=== PATIENT | male | born 1955 | race Caucasian/White ===

== ENCOUNTER 2018-05-14 13:16 | Inpatient (IN) ==
--- NOTE | 2018-05-14 13:48 | XR ---
EXAM DATE: 05/14/2018 1:39 PM EDT AGE/SEX: 63 years / Male INDICATIONS: . Chest and left arm pain. CLINICAL DATA: This is the patient's initial encounter. Patient reports that signs and symptoms have been present for 2 weeks and indicates a pain score of 5/10. MEDICAL/SURGICAL HISTORY: Hypertension. Coronary artery stent. COMPARISON: No prior exams available for comparison. FINDINGS: PA and lateral views of the chest demonstrate the lungs to be symmetrically aerated without evidence of mass, infiltrate or effusion. The cardiomediastinal contours are unremarkable. Osseous structures are intact. CONCLUSION: No acute cardiopulmonary process. Electronically signed by: Yousuf Quezada MD 05/14/2018 1:46 PM EDT
--- NOTE | 2018-05-14 14:03 | ED ---
HPI General Chief complaint: Chest Pain Stated complaint: Chest Pain/Stents Time Seen by Provider: 05/14/18 13:29 Source: patient and RN notes reviewed Mode of arrival: ambulatory History of Present Illness HPI narrative: 63yM presenting with chest pain. The patient states that 3 weeks ago he was mowing his lawn when he began to have sudden-onset substernal chest "pressure" which radiated to his left arm, was constant x 15 minutes and resolved on its own, severe, and associated with diaphoresis, dyspnea, and nausea. Since then, he has had multiple recurrent episodes which now occur both on exertion and at rest. He had 1 episode of chest pain associated with vomiting. Denies fever or chills, syncope, cough, diarrhea, or dysuria. He has a history of CAD s/p multiple stents (most recent approximately 7 years ago). Related Data Home Medications Medication Instructions Recorded Confirmed aspirin 81 mg PO DAILY 05/14/18 05/14/18 clopidogrel [Plavix] 75 mg PO DAILY 05/14/18 05/14/18 losartan 25 mg PO DAILY 05/14/18 05/14/18 simvastatin 10 mg PO QPM 05/14/18 05/14/18 Allergies Allergy/AdvReac Type Severity Reaction Status Date / Time No Known Allergies Allergy Unverified 05/14/18 13:22 Review of Systems Except as stated in HPI: all other systems reviewed are negative Constitutional Reports excessive sweating Eyes Denies blurry vision ENT Denies nasal congestion Cardiovascular Reports chest pain Respiratory Denies cough Gastrointestinal Reports nausea Genitourinary Denies dysuria Musculoskeletal Denies back pain Neurologic Denies confusion Psychiatric Denies confusion PMFSH History History Provided By: Patient Medical History Medical History Elevated cholesterol (Acute) Hypertension (Acute) Surgical History Surgical History H/O heart artery stent (Acute) H/O umbilical hernia repair (Acute) Social History Social History Substance History: No History of Abuse Second Hand Smoke Exposure: No Smoking Status: Current every day smoker Tobacco Type: Cigarettes How Often Do You Have a Drink Containing Alcohol: Never Recent Travel in [facility] within the Last 8 Weeks: No Recent Out of Country Travel within the Last 8 Weeks: No Immunization History Tetanus Immunization: >5 Years Hx Influenza Vaccine This Season: No Exam Const General: healthy appearing and no acute distress [facility] Head: normocephalic and atraumatic Face and sinus: normal facial exam Eyes General: appearance normal, both eyes and all related structures Pupils: PERRL Chest Chest: normal inspection of the chest Resp Effort & Inspection: normal respiratory effort Auscultation: no rhonchi and no wheezes Cardio Rate: bradycardic Rhythm: regular rhythm GI Inspection: non-distended Palpation: soft and nontender Skin General: no rashes or lesions noted Other: Non-diaphoretic Neuro General: alert, awake, oriented x3 and no focal motor deficits Psych Affect: normal affect Course Initial Documented Vital Signs Temperature 97.5 F L 05/14/18 13:18 Pulse Rate 52 L 05/14/18 13:18 Respiratory Rate 16 05/14/18 13:18 Blood Pressure 171/82 H 05/14/18 13:18 Pulse Oximetry 99 05/14/18 13:18 Last Documented Vital Signs Temperature 97.5 F L 05/14/18 13:18 Pulse Rate 57 L 05/14/18 14:23 Respiratory Rate 16 05/14/18 14:23 Blood Pressure 130/76 05/14/18 14:23 Pulse Oximetry 98 05/14/18 14:23 Clinical Decision Support HEART Score Questions History: Highly suspicious EKG: Non-specific repolarization disturbance Age: 45-64 years Risk Factors: 3 or more Risk Factors or Hx of Atherosclerotic Disease Initial Troponin: Normal Limit Heart Score HEART Score: 6 Wells' Criteria Questions Clinical Signs and Symptoms of DVT: No PE is primary diagnosis or equally likely: No Heart Rate greater than 100: No Immobilized at least 3 days or Surgery in previous 4 weeks: No Previous, objectively diagnosed PE or DVT: No Hemoptysis: No Malignancy with treatment within 6 months or palliative: No Wells' Criteria Score Wells' Criteria Score: 0 Medical Decision Making MDM Narrative Medical decision making narrative: Assessment: 63yM presenting with chest pain Plan: EKG and monitor CXR Labs ASA Patient is high-risk via HEART score and will need to stay for observation, serial enzyme measurements, and cardiac monitoring. Patient understands and agrees. Case discussed with Dr. Hart of [facility], who agrees with observation. Patient is ruled out via age-adjusted D- dimer cutoff (age x 10). Differential Diagnosis Differential Diagnosis: Differential diagnosis includes, but is not limited to: ACS, pneumonia, pericarditis Low-risk Well's Lab Data Lab results reviewed: Yes I reviewed the patient's lab results. Result diagrams: 05/14/18 13:50 05/14/18 13:50 Lab Results 05/14/18 05/14/18 05/14/18 Range/Units 13:50 13:50 13:50 CBC w Diff Auto diff final WBC 9.3 (4.0-11.0) th/mm3 RBC 5.18 (4.50-5.90) mil/mm3 Hgb 15.0 (13.0-17.0) gm/dL Hct 44.9 (39.0-51.0) % MCV 86.7 (80.0-100.0) fL MCH 29.0 (27.0-34.0) pg MCHC 33.4 (32.0-36.0) % RDW 12.6 (11.6-17.2) % Plt Count 156 (150-450) th/mm3 MPV 8.1 (7.0-11.0) fL Neut % (Auto) 73.9 H (16.0-70.0) % Lymph % (Auto) 17.3 (9.0-44.0) % [place] % (Auto) 6.6 (0.0-8.0) % Eos % (Auto) 1.8 (0.0-4.0) % Baso % (Auto) 0.4 (0.0-2.0) % Neut # (Auto) 6.9 (1.8-7.7) th/mm3 Lymph # (Auto) 1.6 (1.0-4.8) th/mm3 [place] # (Auto) 0.6 (0.0-0.9) th/mm3 Eos # (Auto) 0.2 (0.0-0.4) th/mm3 Baso # (Auto) 0.0 (0.0-0.2) th/mm3 WBC Differential . Differential Comment . D-Dimer Quant (PE/DVT) 0.56 H (0.00-0.50) mg/L FEU Sodium 139 (136-145) meq/L Potassium 4.0 (3.5-5.1) meq/L Chloride 106 (98-107) meq/L Carbon Dioxide 26.6 (21.0-32.0) meq/L Anion Gap 6 (5-15) meq/L BUN 17 (7-18) mg/dL Creatinine 0.93 (0.60-1.30) mg/dL Estimated GFR 83 L (>89) mL/min Random Glucose 104 (74-106) mg/dL Calcium 8.0 L (8.5-10.1) mg/dL Total Creatine Kinase 64 (39-308) U/L Troponin I 0.02 (0.02-0.05) ng/mL Imaging Data Radiologist's impression: Chest X-Ray 05/14/18 13:24 CONCLUSION: No acute cardiopulmonary process. ECG Data Attestation: I personally reviewed and interpreted this ECG as follows: Interpretation: Rate: 50 BPM Rhythm: Sinus Fisher: Normal Intervals: Normal intervals, no blocks, QTc 402 ms Q waves: None T waves: Inverted in III, aVF ST segments: No elevations or depressions Impression: Sinus bradycardia, no previous EKG available for comparison Discharge Plan Discharge Disposition Patient Disposition: 30 Still Patient Discharge Condition Condition: Stable Discharge Details Diagnosis: Unstable angina Physicians Team ED Provider: Dasia Alaniz Primary Care Provider: Primary Care Dennisi,Linda Rxs /Orders / Referrals /Forms Prescriptions: No Action simvastatin 10 mg Tablet 10 mg PO QPM RF: 0 clopidogrel [Plavix] 75 mg Tablet 75 mg PO DAILY RF: 0 losartan 25 mg Tablet 25 mg PO DAILY RF: 0 aspirin 81 mg Tablet,Chewable 81 mg PO DAILY RF: 0 Discharge Instructions Patient Printed Instructions: Chest Pain (ED) Discharge Interventions Interventions: Vital Signs Last Done: 05/14/18 14:23 Status ED Status: With Doctor
[2018-05-14 14:06] LABS: Baso % (Auto) 0.4 % (0.0-2.0); Eos # (Auto) 0.2 th/mm3 (0.0-0.4); Eos % (Auto) 1.8 % (0.0-4.0); Hematocrit 44.9 % (39.0-51.0); Lymph # (Auto) 1.6 th/mm3 (1.0-4.8); Lymph % (Auto) 17.3 % (9.0-44.0); Mean Corpuscular HGB Conc 33.4 % (32.0-36.0); Mean Corpuscular Volume 86.7 fL (80.0-100.0); Mean Platelet Volume 8.1 fL (7.0-11.0); Mono # (Auto) 0.6 th/mm3 (0.0-0.9); Mono % (Auto) 6.6 % (0.0-8.0); Neut # (Auto) 6.9 th/mm3 (1.8-7.7); Neut % (Auto) 73.9 % (16.0-70.0); Platelet Count 156 th/mm3 (150-450); Red Blood Count 5.18 mil/mm3 (4.50-5.90); Red Cell Distribution Width 12.6 % (11.6-17.2); White Blood Count 9.3 th/mm3 (4.0-11.0)
[2018-05-14 14:15] LABS: Carbon Dioxide 26.6 meq/L (21.0-32.0)
[2018-05-14 14:22] LABS: Troponin I 0.02 ng/mL (0.02-0.05)
[2018-05-14 16:29] LABS: Troponin I 0.13 ng/mL (0.02-0.05)
[2018-05-14] MEDS ORDERED: Heparin Drip 25,000 UNIT/250 ML BAG IV.CONT PRN (17:26)
--- NOTE | 2018-05-14 17:29 | P.HP ---
History of Present Illness Primary Care Physician: No Primary Care Physician Chief Complaint: Chest pain History of Present Illness: 63-year-old male with known history of hypertension, hyperlipidemia, coronary disease who presented to the hospital for evaluation chest pain. Patient is followed by Dr. Catherine on a regular basis. Patient states that he saw him last in August 2017. Since then he has been doing quite well until probably about a week ago when he started developing pain on exertion. Patient states that he was mowing the lawn in the heat and started developing a centralized chest pain which radiated to his left arm. Denied any diaphoresis, shortness of breath, dyspnea, nausea, vomiting, lightheadedness or dizziness. Patient states that since then he has been having intermittent chest discomfort mainly with exertion , and it does go away after about 10-15 minutes when she sits down and rest. He has had 2 episodes of which he was experiencing the discomfort while at rest. Today he was doing some light exertion playing the drums and he got the chest pain again which was 8/10 on a pain scale. He came to emergency department for evaluation. Initial workup was unremarkable and has requested that the patient be observed in the hospital for further evaluation and management. Follow-up troponins have turned positive. Patient with non-ST elevated myocardial infarction. Patient will be admitted. Cardiac consultation. - Diagnosis (1) Non-ST elevation myocardial infarction (NSTEMI) (2) Unstable angina Review of Systems All other systems reviewed negative except as stated in HPI Cardiovascular: Reports chest pain Gastrointestinal: Reports nausea PMFSH - History History Provided By: Patient - Medical History Medical History: Medical History (Last Updated 05/14/18 @ 17:14 by HELEN Womack) Coronary artery disease Elevated cholesterol Hypertension - Surgical History Surgical History: Surgical History (Last Updated 05/14/18 @ 17:04 by HELEN Womack) H/O heart artery stent H/O umbilical hernia repair - Family History Family History: Family History (Last Updated 05/14/18 @ 17:06 by HELEN Womack) Father History of prostate cancer History of heart disease Mother History of alcoholism - Tobacco History Second Hand Smoke Exposure: No Tobacco Use In Past 30 Days: Yes Smoking Status: Current every day smoker Tobacco Type: Cigarettes Packs Per Day: 0.5 (Patient smoked one half pack of cigarettes a day since he was at least 17 or 18 years old) Years Smoked: 45 - Alcohol History How Often Do You Have a Drink Containing Alcohol: Never - Substance Use History Substance History: No History of Abuse - Travel History Recent Travel in the [place] Within the Last 8 Weeks: No Recent Travel Out of the Country Within the Last 8 Weeks: No - Immunization History Tetanus Immunization: >5 Years Hx Influenza Vaccine This Season: No Medications and Allergies Active Medications: Active Medications Hydrocodone Bitart/Acetaminophen (Council 7.5/325) 1 tab PO Q4H PRN PRN Reason: PAIN SCALE 6 TO 10 Aspirin (Aspirin Chew) 81 mg PO DAILY MARIANNE Clopidogrel Bisulfate (Plavix) 75 mg PO DAILY MARIANNE Losartan Potassium (Cozaar) 25 mg PO DAILY MARIANNE Pravastatin Sodium (Pravachol) 20 mg PO QPM MARIANNE Sodium Chloride (Ns Flush) 2 ml IV.FLUSH BID MARIANNE Sodium Chloride (Ns Flush) 2 ml IV.FLUSH PRN PRN PRN Reason: FLUSH AFTER USING IV ACCESS Allergies Allergy/AdvReac Type Severity Reaction Status Date / Time No Known Allergies Allergy Unverified 05/14/18 13:22 Home Medications Medication Instructions Recorded Confirmed Type aspirin 81 mg PO DAILY 05/14/18 05/14/18 History clopidogrel [Plavix] 75 mg PO DAILY 05/14/18 05/14/18 History losartan 25 mg PO DAILY 05/14/18 05/14/18 History simvastatin 10 mg PO QPM 05/14/18 05/14/18 History Exam Vital signs: Vital Signs 05/14/18 13:18 05/14/18 13:32 05/14/18 13:37 Temperature 97.5 F L Pulse Rate 52 L 57 L Respiratory Rate 16 18 Blood Pressure 171/82 H 136/78 Pulse Oximetry 99 98 98 05/14/18 14:23 05/14/18 15:59 Temperature Pulse Rate 57 L 54 L Respiratory Rate 16 16 Blood Pressure 130/76 128/72 Pulse Oximetry 98 100 Intake & Output 05/13/18 05/14/18 05/14/18 18:59 06:59 18:59 Weight 75.4 kg Other: Date of Last Bowel Movement 05/14/18 Narrative: GENERAL: Well-developed, well-nourished, in no acute distress. alert and orientated HEENT: Head is normocephalic without any lesions or masses noted. Facial features are symmetric. Eyes: Pupils equal round reactive to light. Extraocular muscles are intact. Conjunctivae were clear. Oropharyngeal: Pharynx without any erythema edema. Tongue is midline without deviation. Buccal mucosa is moist without any masses or lesions NECK: Supple without any masses. Trachea midline no deviation. No JVD, no bruits are appreciated CARDIAC: Regular rhythm, regular rate. S1/S2 are heard. No murmurs gallops or rubs. LUNGS: Clear to auscultation bilaterally. No wheeze, rhonchi or rales. No use of accessory muscles on inspiration or expiration. ABDOMEN: Soft, nontender. Nondistended. Bowel sounds heard in all 4 quadrants. No organomegaly or masses. Negative rebound, negative guarding EXTREMITIES: No edema, pulses are equal bilaterally. No cyanosis or clubbing NEUROLOGY: Mood and affect appear appropriate. Cranial nerves II through XII grossly intact. Muscle strength 5/5 in upper and lower extremities bilaterally. Deep tendon reflexes are 2+ in upper and lower extremities bilaterally. Results - Labs CBC & Chem 7: 05/14/18 13:50 05/14/18 13:50 Labs: Laboratory Results - last 24 hr 05/14/18 05/14/18 05/14/18 13:50 13:50 13:50 CBC w Diff Auto diff final WBC 9.3 RBC 5.18 Hgb 15.0 Hct 44.9 MCV 86.7 MCH 29.0 MCHC 33.4 RDW 12.6 Plt Count 156 MPV 8.1 Neut % (Auto) 73.9 H Lymph % (Auto) 17.3 [place] % (Auto) 6.6 Eos % (Auto) 1.8 Baso % (Auto) 0.4 Neut # (Auto) 6.9 Lymph # (Auto) 1.6 [place] # (Auto) 0.6 Eos # (Auto) 0.2 Baso # (Auto) 0.0 WBC Differential . Differential Comment . D-Dimer Quant (PE/DVT) 0.56 H Sodium 139 Potassium 4.0 Chloride 106 Carbon Dioxide 26.6 Anion Gap 6 BUN 17 Creatinine 0.93 Estimated GFR 83 L Random Glucose 104 Calcium 8.0 L Total Creatine Kinase 64 Troponin I 0.02 05/14/18 15:50 CBC w Diff WBC RBC Hgb Hct MCV MCH MCHC RDW Plt Count MPV Neut % (Auto) Lymph % (Auto) [place] % (Auto) Eos % (Auto) Baso % (Auto) Neut # (Auto) Lymph # (Auto) [place] # (Auto) Eos # (Auto) Baso # (Auto) WBC Differential Differential Comment D-Dimer Quant (PE/DVT) Sodium Potassium Chloride Carbon Dioxide Anion Gap BUN Creatinine Estimated GFR Random Glucose Calcium Total Creatine Kinase 61 Troponin I 0.13 H - Imaging Impressions Chest X-Ray 05/14/18 13:24 CONCLUSION: No acute cardiopulmonary process. Caprini VTE Risk Assessment Caprini VTE Risk Assessment: Moderate/High Risk (score >= 2) Caprini Risk Assessment Model: Point Value = 1 Point Value = 2 Point Value = 3 Point Value = 5 Age 41-60 Minor surgery BMI > 25 kg/m2 Swollen legs Varicose veins or History of unexplained or recurrent spontaneous Oral contraceptives or hormone replacement Sepsis (< 1 month) Serious lung disease, including pneumonia (< 1 month) Abnormal pulmonary function Acute myocardial infarction Congestive heart failure (< 1 month) History of inflammatory bowel disease Medical patient at bed rest Age 61-74 Arthroscopic surgery Major open surgery (> 45 min) Laparoscopic surgery (> 45 min) Malignancy Confined to bed (> 72 hours) Immobilizing plaster cast Central venous access Age >= 75 History of VTE Family history of VTE Factor V Leiden Prothrombin [id number] Lupus anticoagulant Anticardiolipin antibodies Elevated serum homocysteine Heparin-induced thrombocytopenia Other congenital or acquired thrombophilia Stroke (< 1 month) Elective arthroplasty Hip, pelvis, or leg fracture Acute spinal cord injury (< 1 month) Prophylaxis Regimen: Total Risk Factor Score Risk Level Prophylaxis Regimen 0-1 Low Early ambulation 2 Moderate Order ONE of the following: *Sequential Compression Device (SCD) *Heparin 5000 units SQ BID 3-4 Higher Order ONE of the following medications: *Heparin 5000 units SQ TID *Enoxaparin/Lovenox 40 mg SQ daily (WT < 150 kg, CrCl > 30 mL/min) *Enoxaparin/Lovenox 30 mg SQ daily (WT < 150 kg, CrCl > 10-29 mL/min) *Enoxaparin/Lovenox 30 mg SQ BID (WT < 150 kg, CrCl > 30 mL/min) AND/OR *Sequential Compression Device (SCD) 5 or more Highest Order ONE of the following medications: *Heparin 5000 units SQ TID (Preferred with Epidurals) *Enoxaparin/Lovenox 40 mg SQ daily (WT < 150 kg, CrCl > 30 mL/min) *Enoxaparin/Lovenox 30 mg SQ daily (WT < 150 kg, CrCl > 10-29 mL/min) *Enoxaparin/Lovenox 30 mg SQ BID (WT < 150 kg, CrCl > 30 mL/min) AND *Sequential Compression Device (SCD) Assessment and Plan - Assessment (1) Non-ST elevation myocardial infarction (NSTEMI) Code(s): I21.4 - Non-ST elevation (NSTEMI) myocardial infarction Status: Acute (2) Unstable angina Code(s): I20.0 - Unstable angina Status: Acute - Plan Non-ST elevated myocardial infarction -Patient presented with symptoms concerning for unstable angina. Patient does have increased risk factors include age, male, hypertension, hyperlipidemia, coronary artery disease, family history of heart disease, tobacco abuse -Continue to monitor troponin level, presently they have increased to 0.13. -EKGs were reviewed by myself which did indicate sinus rhythm with first-degree AV block, there are inverted T waves in lead III and aVF -Consulted cardiology for further evaluation, discussed with Dr. Emery -Transfer to the [facility] for cardiac catheterization -Start heparin drip -Home medication continue to include aspirin, losartan, Plavix. Unable to use beta az due to bradycardia -Make n.p.o. after midnight for cardiac catheterization Hypertension, hyperlipidemia, coronary artery disease -Continue home medications -Obtain lipid panel -Continue statin Chronic tobacco use -Counseled on cessation DVT prevention -Heparin IV Discussed Condition With: Patient, Dr. Hart, Dr. Catherine, Dr. Emery
[2018-05-14] MEDS ORDERED: Heparin 10,000 UNITS/10 ML Vial (for IV use) IV.PUSH STA (18:09)
[2018-05-14 18:34] LABS: Activated Partial Thrombo Time 27.4 sec (24.3-30.1); Prothrombin Time 10.3 sec (9.8-11.6)
[2018-05-14 18:40] LABS: Troponin I 0.19 ng/mL (0.02-0.05)
[2018-05-14] MEDS ORDERED: Heparin 10,000 UNITS/10 ML Vial (for IV use) IV.PUSH PRN ×2 (23:27)
[2018-05-15 03:16] LABS: Hematocrit 44.8 % (39.0-51.0); Hemoglobin 14.9 gm/dL (13.0-17.0); Mean Corpuscular HGB Conc 33.4 % (32.0-36.0); Mean Corpuscular Hemoglobin 28.3 pg (27.0-34.0); Mean Corpuscular Volume 84.8 fL (80.0-100.0); Mean Platelet Volume 8.4 fL (7.0-11.0); Platelet Count 141 th/mm3 (150-450); Red Blood Count 5.28 mil/mm3 (4.50-5.90); Red Cell Distribution Width 13.9 % (11.6-17.2); White Blood Count 9.4 th/mm3 (4.0-11.0)
[2018-05-15 03:44] LABS: Chol/HDL Ratio 5.1 Ratio
--- NOTE | 2018-05-15 07:47 | MB ---
cc: Drew Horton MD DATE: 05/15/2018 INDICATION: Non-ST elevation myocardial infarction. HISTORY OF PRESENT ILLNESS: This is a 63-year-old male with a history of hypertension, hyperlipidemia, coronary artery disease with prior percutaneous intervention, although the details are not well described. He follows up down in [facility]. The patient states that he is a patient of Dr. Catherine and sees him once a year. [facility] was contacted, but did not have him in the records. He is a self-pay. He was transferred to the on-call right of way cutter myself. He states that he saw Dr. Catherine last in August 2017. He started developing symptomatic chest pain while mowing the lawn. He describes it is similar presentation to his prior angina. It lasted about 10-15 minutes and was resolved with rest. He came into the emergency department. His troponins have slightly bumped to the positive range consistent with a non-ST elevation myocardial infarction. We were consulted for further recommendations. He was transferred from [place] for consideration of cardiac catheterization. PAST MEDICAL HISTORY: Coronary artery disease, hypertension, hyperlipidemia. REVIEW OF SYSTEMS: A 12-point review of systems was performed and is negative unless otherwise as noted in history of present illness. FAMILY HISTORY: Denies any family history of early coronary artery disease or sudden cardiac . SOCIAL HISTORY: Current smoker, half a pack a day for about 40 years. No drug use. No alcohol use. PHYSICAL EXAMINATION: GENERAL: Alert and oriented x 3 in no acute distress. HEENT: Exam shows pupils are reactive to light and accommodation. Extraocular movements are intact. NECK: No elevation of jugular venous distention. No thyromegaly. No lymphadenopathy. No carotid bruits. LUNGS: Clear to auscultation bilaterally. CARDIOVASCULAR: Regular rate and rhythm without murmurs, rubs or gallops. ABDOMEN: Nontender, nondistended. Good bowel sounds. No hepatosplenomegaly. EXTREMITIES: Show no clubbing, cyanosis or edema. Good peripheral pulses. NEUROLOGIC: Cranial nerves intact. Motor and sensory grossly intact VITAL SIGNS: Temperature is 97.5, pulse 57, blood pressure 136/78 mmHg. MEDICATIONS: 1. Aspirin. 2. Plavix. 3. Losartan. 4. Pravastatin. LABORATORY DATA: WBC 9.4, hemoglobin 14.4, platelet counts 144. INR is 1. Sodium 139, potassium 4.0, BUN 17, creatinine 0.90. Troponin 0.19. ELECTROCARDIOGRAM: Sinus rhythm, T-wave inversions inferiorly, first degree AV block. ASSESSMENT: 1. Non-ST elevation myocardial infarction. 2. History of coronary artery disease, prior percutaneous intervention. 3. Hypertension. 4. Hyperlipidemia. PLAN: Symptoms are very suggestive of exertional unstable anginal symptoms with progression over the course of the past 2 weeks. Symptoms were relieved with rest. Troponins were positive consistent with non-ST elevation myocardial infarction. Electrocardiogram has some nonspecific T-wave inversions. We will make the patient n.p.o. Discussed risks, benefits and alternatives for consideration of cardiac catheterization. The patient is agreeable. Drew Horton MD JAROD/DL , 07:29 AM , 07:38 AM
[2018-05-15] MEDS ORDERED: fentaNYL Citrate Inj 100 MCG/2 ML Ampul ONE (12:12)
[2018-05-15] MEDS ORDERED: Heparin/NS PF Inj 1,000 ML ONE (12:12)
--- NOTE | 2018-05-15 12:12 | P.PNIM ---
Subjective Interval history: No complaints of chest pain today. Mild troponin elevation was present given patient's past history of coronary artery disease with stents and symptom at presentation, heart cath is planned today. No other complaints from the patient. Physical Exam Vital signs: Vital Signs 05/14/18 13:18 05/14/18 13:32 05/14/18 13:37 Temperature 97.5 F L Pulse Rate 52 L 57 L Respiratory Rate 16 18 Blood Pressure 171/82 H 136/78 Pulse Oximetry 99 98 98 05/14/18 14:23 05/14/18 15:59 05/14/18 17:24 Temperature 97.1 F L Pulse Rate 57 L 54 L 51 L Respiratory Rate 16 16 16 Blood Pressure 130/76 128/72 128/65 Pulse Oximetry 98 100 97 05/14/18 20:00 05/14/18 20:24 05/15/18 00:00 Temperature 97.1 F L 96.1 F L Pulse Rate 56 L 49 L Respiratory Rate 18 18 Blood Pressure 143/63 H 157/70 H Pulse Oximetry 96 98 05/15/18 01:20 05/15/18 04:00 05/15/18 08:00 Temperature 97.7 F 97.8 F 98.0 F Pulse Rate 44 L 56 L 50 L Respiratory Rate 18 18 20 Blood Pressure 150/79 H 130/72 138/76 Pulse Oximetry 95 95 95 05/15/18 10:06 Temperature Pulse Rate Respiratory Rate Blood Pressure Pulse Oximetry 96 Intake & Output 05/14/18 05/15/18 05/15/18 18:59 06:59 18:59 Intake Total 240 / 240 Balance 240 / 240 Weight 74.5 kg 72.1 kg Intake: IV 0 / 0 Heparin/D5W 25,000 U/250 mL 25, 0 / 0 000 unit In 250 ml @ Per Protocol IV.CONT TITRATE PRN Rx #:[id number] Oral 240 / 240 Other: # Voids 4 Date of Last Bowel Movement 05/14/18 05/14/18 # Bowel Movements 0 Weight On Admission 74.5 kg Narrative: GENERAL: NAD, A&Ox3 HEAD: Normocephalic. NECK: Supple, trachea midline. No lymphadenopathy. EYES: No scleral icterus. No injection or drainage. CARDIOVASCULAR: Regular rate and rhythm without murmurs, gallops, or rubs. RESPIRATORY: Breath sounds equal bilaterally. No accessory muscle use. GASTROINTESTINAL: Abdomen soft, non-tender, nondistended. MUSCULOSKELETAL: No cyanosis, or edema. SKIN: Warm and dry. NEURO: No focal neurological deficits. Results - Labs CBC & Chem 7: 05/15/18 02:29 05/14/18 13:50 Laboratory Results - last 24 hr 05/14/18 05/14/18 05/14/18 13:50 13:50 13:50 CBC w Diff Auto diff final WBC 9.3 RBC 5.18 Hgb 15.0 Hct 44.9 MCV 86.7 MCH 29.0 MCHC 33.4 RDW 12.6 Plt Count 156 MPV 8.1 Neut % (Auto) 73.9 H Lymph % (Auto) 17.3 [place] % (Auto) 6.6 Eos % (Auto) 1.8 Baso % (Auto) 0.4 Neut # (Auto) 6.9 Lymph # (Auto) 1.6 [place] # (Auto) 0.6 Eos # (Auto) 0.2 Baso # (Auto) 0.0 WBC Differential . Differential Comment . PT INR APTT D-Dimer Quant (PE/DVT) 0.56 H Sodium 139 Potassium 4.0 Chloride 106 Carbon Dioxide 26.6 Anion Gap 6 BUN 17 Creatinine 0.93 Estimated GFR 83 L Random Glucose 104 Calcium 8.0 L Total Creatine Kinase 64 Troponin I 0.02 Triglycerides Cholesterol LDL Cholesterol, Calc HDL Cholesterol Cholesterol/HDL Ratio 05/14/18 05/14/18 05/14/18 15:50 18:00 18:00 CBC w Diff WBC RBC Hgb Hct MCV MCH MCHC RDW Plt Count MPV Neut % (Auto) Lymph % (Auto) [place] % (Auto) Eos % (Auto) Baso % (Auto) Neut # (Auto) Lymph # (Auto) [place] # (Auto) Eos # (Auto) Baso # (Auto) WBC Differential Differential Comment PT 10.3 INR 1.0 APTT 27.4 D-Dimer Quant (PE/DVT) Sodium Potassium Chloride Carbon Dioxide Anion Gap BUN Creatinine Estimated GFR Random Glucose Calcium Total Creatine Kinase 61 67 Troponin I 0.13 H 0.19 H Triglycerides Cholesterol LDL Cholesterol, Calc HDL Cholesterol Cholesterol/HDL Ratio 05/15/18 05/15/18 05/15/18 02:29 02:29 02:29 CBC w Diff WBC 9.4 RBC 5.28 Hgb 14.9 Hct 44.8 MCV 84.8 MCH 28.3 MCHC 33.4 RDW 13.9 Plt Count 141 L MPV 8.4 Neut % (Auto) Lymph % (Auto) [place] % (Auto) Eos % (Auto) Baso % (Auto) Neut # (Auto) Lymph # (Auto) [place] # (Auto) Eos # (Auto) Baso # (Auto) WBC Differential Differential Comment PT INR APTT 31.3 H D-Dimer Quant (PE/DVT) Sodium Potassium Chloride Carbon Dioxide Anion Gap BUN Creatinine Estimated GFR Random Glucose Calcium Total Creatine Kinase Troponin I Triglycerides 96 Cholesterol 204 H LDL Cholesterol, Calc 145 H HDL Cholesterol 40.0 Cholesterol/HDL Ratio 5.10 05/15/18 06:20 CBC w Diff WBC RBC Hgb Hct MCV MCH MCHC RDW Plt Count MPV Neut % (Auto) Lymph % (Auto) [place] % (Auto) Eos % (Auto) Baso % (Auto) Neut # (Auto) Lymph # (Auto) [place] # (Auto) Eos # (Auto) Baso # (Auto) WBC Differential Differential Comment PT INR APTT 43.4 H D D-Dimer Quant (PE/DVT) Sodium Potassium Chloride Carbon Dioxide Anion Gap BUN Creatinine Estimated GFR Random Glucose Calcium Total Creatine Kinase Troponin I Triglycerides Cholesterol LDL Cholesterol, Calc HDL Cholesterol Cholesterol/HDL Ratio - Imaging Impressions Chest X-Ray 05/14/18 13:24 CONCLUSION: No acute cardiopulmonary process. Assessment and Plan - Assessment (1) Non-ST elevation myocardial infarction (NSTEMI) Code(s): I21.4 - Non-ST elevation (NSTEMI) myocardial infarction Status: Acute (2) Unstable angina Code(s): I20.0 - Unstable angina Status: Acute - Plan 63-year-old male with history of coronary artery disease and previous stents, admitted secondary to chest pain Non-ST elevated myocardial infarction Coronary artery disease History of coronary stents Patient counseled to quit smoking Continue following on telemetry Heart cath planned for today Continue heparin Cardiology following Hypertension Continue baseline treatment Follow blood pressures Adjust treatments as needed Hyperlipidemia Continue present treatment Follow as an outpatient Nicotine dependence Patient counseled to quit DVT prevention Heparin
[2018-05-15] MEDS ORDERED: Heparin 10,000 UNITS/10 ML Vial (for IV use) ONE (12:13)
--- NOTE | 2018-05-15 12:54 | CATHPROC ---
[employer] HIS Report Study Information Study Number Admission Scheduled Start Study Start [id number] May 14 2018 5:10PM 05/15/2018 May 15 2018 12:02PM [place] [facility] Electrophysiology Study Admit Source Facility Department Emergency department [facility] - Fuel Handler Physician and Clinical Staff Initial Drew Sunshine Endband Cutter Hand Jacob Kelly,RN Other Elzbieta Guajardo,RT(R) Recorder Silvano Trujillo,RT(R) Carla Sarah,RT(R) (BS) Procedures Performed Procedure Location (Site) Vessel Name Coronary Angiograms LCA Left Coronary Coronary Angiograms RCA Right Coronary L Heart Cath Equipment Time Design Intern Description Size Mfg Part Number Used/Scraped TRANSDUCER, TRUWAVE [id number] 12:02 MANRIQUEZ EL * Used W/STOCKCOCK *[id number] 12:02 imo.im BLANKET,WARM AIR CCL * Used *[id number] 12:02 imo.im PACK, CCL CUSTOM * Used *[id number] 12:02 imo.im SUPPORT, ARTERIAL ADULT 96001 *[id number] Used [id number] 12:19 MEDTR[employer] JL 3.5 DXTERITY CATHETER FR 5 Used *[id number] 12:19 [employer] JR 5.0 DXTERITY CATHETER fr 5 [id number] Used BAND, RADIAL COMPRESSION TR [id number] 12:41 [employer] 24CM Used SHORT 24 *[id number] SHEATH, FR6 RADIAL PRELUDE 12:02 [employer] FR 6 [id number] Used EASE 11CM [id number] 12:02 [employer] WIRE, EXCHANGE 260CM 3MMJ 260CM Used *[id number] 12:02 NAMIC MANIFOLD, 4 PORT * Used *[id number] 12:02 [employer]COM[employer] OMNIPAQUE, 350 MG, 150ML 150ML [id number] Used Equipment Model, Serial, Lot Number and Expiration Data Description Model Number Serial Number Lot Number Expiration Date JR 5.0 DXTERITY CATHETER [id number] 05-30-2020 History: Current Medications Medication Dosage/Unit Route Frequency Last Date/Time Taken ASA PLAVIX Statins (any) History: Allergies Allergy Reaction No Known Allergies History: Risk Factors Family History of Hypertension Dyslipidemia Previous FL Previous Heart Failure Premature CAD Yes Yes Yes No No Prior Valve Prior PCI Prior PCIDate Prior CABG Surgery No Yes 05/09/2013 No Cerebrovascular Peripheral Artery Chronic Lung On Dialysis Diabetes Disease Disease Disease No No No No No History: Risk Factors Selection Items Current Smoker History: Symptoms/Diagnosis Selection Items Chest pain History: CV Disease Selection Items Known CAD History: Stress Tests Stress or Imaging Studies Performed No History: Other Disease Selection Items CAD HTN History: Other Current Smoker Method Packs a Day Years Used Pack Years Yes Cigarettes 1 45 45 Labs Hgb (g/dl) Hct (%) RBC (MIL/MM3) WBC (l/cumm) Platelets (thousands) 11.60-17.00 35.00-51.00 4.00-5.90 4.00-11.00 150.00-450.00 14.9 44.8 5.1 9.4 141 Glucose (mg/dl) BUN (mg/dl) Creatinine (mg/dl) BUN:Creatinine (1:x) 74.00-106.00 7.00-18.00 0.50-1.30 10.00-20.00 104 17 0.9 18.9 Na (meq/l) K (meq/l) Cl (meq/l) CO2 (mmol/L) Ca (mg/dl) 136.00-145.00 3.50-5.10 98.00-107.00 21.00-32.00 8.50-10.10 139 4 106 26.6 8 PT (sec) PTT (sec) INR (PTT:PT) 9.80-11.60 24.30-30.10 0.90-1.10 10.3 27.4 1 Troponin I (ng/ml) CPK-MB (ng/ML) 0.02-0.05 0.50-3.60 0.15 Not Drawn Medication Medication Total Dose (Bolus/Oral) Medication Total Dosage/Unit 1% XYLOCAINE 5 mL FENTANYL 25 mcg HEPARIN 3000 units NTG (IC) 200 mcg VERSED 1 mg Medications (Bolus/Oral) Medication Time Given Dosage/Unit Administered By Reason VERSED 05/15/2018 12:31:49 PM 1 mg RobinJacob 1 mg VERSED given in lab by Jacob Kelly RN in Left Forearm via Peripheral IV. FENTANYL 05/15/2018 12:31:55 PM 25 mcg Robin, Jacob 25 mcg FENTANYL given in lab by Jacob Kelly RN in Left Forearm via Peripheral IV. 1% XYLOCAINE 05/15/2018 12:32:06 PM 5 mL Drew Horton 5 mL 1% XYLOCAINE given in lab by Drew Horton in Right Radial via Subcutaneous. NTG (IC) 05/15/2018 12:32:58 PM 200 mcg Drew Horton 200 mcg NTG (IC) given in lab by Drew Horton in Right Radial via Intra-arterial. HEPARIN 05/15/2018 12:33:23 PM 3000 units Jacob Kelly 3000 units HEPARIN given in lab by Jacob Kelly RN in Left Forearm via Peripheral IV. Medication (Drip) Medication Time Given Dosage/Unit Concentration/Unit Diluent (ml) Solutio n IV Solutions 05/15/2018 12:08:43 PM 0 mL (IV) 1000 NaCl .9 IV Solutions given in lab by Jacob Kelly RN in Left Forearm via Peripheral IV. Pump/Drip Flow = 20 ml/hr using NaCl .9. Initial Case Assessment Cardiovascular HR Rhythm NIBP Chest Pain 53 Sinus 129/74 0 Edema Present Skin color Skin None Normal Warm Dry Circulatory - Right Pulses Dorsalis Pedis Femoral Radial 3 2 2 Scale (0,1,2,3,4,d) Scale (0,1,2,3,4,d) Neurological State Oriented to time-place- Alert Moves all extremities person Respiration - General Respiration Rate SpO2 (%) O2 (lpm) (B/min) 11 97 0 Final Case Assessment Cardiovascular HR Rhythm NIBP Chest Pain 50 Sinus 149/75 0 Edema Present Skin color Skin None Normal Warm Dry Circulatory - Right Pulses Dorsalis Pedis Femoral Radial 3 2 2 Scale (0,1,2,3,4,d) Scale (0,1,2,3,4,d) Neurological State Oriented to time-place- Alert Moves all extremities person Respiration - General Respiration Rate SpO2 (%) O2 (lpm) (B/min) 12 95 0 Chronological Log Time Study Chronological Log 12:03:19 Patient arrived via Bed. 12:03:20 Patient Name, D.O.B, / Armband Verified By R.N. 12:03:21 Consent signed by the physician and the patient and verified by the Fuel Handler staff. 12:03:22 Pre-op and post- op instructions given; patient acknowledges understanding of instructions. 12:03:23 Verbal Stimulation=2 Physical Stimulation=2 Airway=2 Respiration=2 TOTAL=8. (0=absent, 1=li mited, 2=present) 12:03:24 Presedation assessment performed by Fuel Handler RN. 12:03:26 Allens test performed on the right radial and ulnar artery. 12:03:28 Immediate Presedation assesment performed by physician. 12:03:30 Patient has been NPO for More than 6Hrs. 12:03:31 Skin Breakdown- none per patient. 12:03:38 Jayme Prominences Protected 12:03:40 A # 20 IV was noted in the Antecubital (right). Grade = 0 12:03:49 A # 20 IV was noted in the Forearm (left). Grade = 0 IV Solutions given in lab by Jacob Kelly RN in Left Forearm via Peripheral IV. Pump/Drip Flow = 20 ml/hr using NaCl 12:08:43 .9. 12:08:46 History and physical on the chart or being dictated. Assessment: Initial Case, HR=53 BPM, Rhythm=Sinus, RPKR=498/74 mmhg, Chest Pain=0, Edema=None, Color=Normal, Skin = Warm, Dry 12:08:46 Right Pulses: Josiah Ped=3, Femoral=2, Radial=2 Neurological: State=Alert, Ox3, MARCANO Respiration: Resp=11 B/min, SpO2=97 %, O2=0 lpm Vitals capture started with the following parameters, Patient=Adult, Interval=5 min, Initial Pr ruvhvo=947 mmHg, 12:12:00 Deflation Rate=5 mmHg, Cuff placed on Left Arm 12:12:20 Reference ECG taken 12:12:34 HR=48 bpm, BCBO=026/74 mmhg, SpO2=98.0 %, Resp=13 B/min, Pain=0, Kanika=10, Cheung=2 12:18:14 HR=51 bpm, LKCL=396/77 mmhg, SpO2=98.0 %, Resp=17 B/min, Pain=0, Kanika=10, Cheung=2 12:20:09 Right Radial and groin(s) prepped with 2% chlorhexidine, and draped after a 3 min. waiting time. 12:22:34 HR=47 bpm, RMAH=561/80 mmhg, SpO2=97.0 %, Resp=14 B/min, Pain=0, Kanika=10, Cheung=2 12:25:08 MD paged 12:: MD responded 12::35 HR=50 bpm, PNUY=157/74 mmhg, SpO2=97.0 %, Resp=15 B/min, Pain=0, Kanika=10, Cheung=2 12:29:17 MD arrived. Time Out. Correct patient, correct procedure, correct physician, labs, allergies, and equipment verified with denture laboratory technician 12::28 team present. Fire risk assesment completed (see hard stop sheet for coding). Time Out Conc urred by MD and individual staff in procedure. 12:30:51 Pressure channel 1 zeroed. 12::49 1 mg VERSED given in lab by Jacob Kelly RN in Left Forearm via Peripheral IV. 12:31:55 25 mcg FENTANYL given in lab by Jacob Kelly RN in Left Forearm via Peripheral IV. 12:32:06 Case Start 12:32:06 5 mL 1% XYLOCAINE given in lab by Drew Horton in Right Radial via Subcutaneous. 12:32:29 Access site was Right Radial Artery . A SHEATH, FR6 RADIAL PRELUDE EASE 11CM FR 6 was advanced into the Radial (right) using the Perc utaneous 12:32:39 technique. 12:32:58 200 mcg NTG (IC) given in lab by Drew Horton in Right Radial via Intra-arterial. 12:33:23 3000 units HEPARIN given in lab by Jacob Kelly RN in Left Forearm via Peripheral IV. 12:33:52 HR=52 bpm, UVPP=299/71 mmhg, SpO2=95.0 %, Resp=13 B/min, Pain=0, Kanika=10, Cheung=2 A JR 5.0 DXTERITY CATHETER fr 5 was advanced over a wire. OMNIPAQUE, 350 MG, 150ML 150ML was u sed for 12:34:07 injections. 12:35:24 The RCA was injected and visualized at various angles. OMNIPAQUE, 350 MG, 150ML 150ML use d. After removing the current catheter a JL 3.5 DXTERITY CATHETER FR 5 was advanced over a WIRE, EXCHANGE 260CM 12:35:37 3MMJ 260CM. 12:37:08 The LCA was injected and visualized at various angles. OMNIPAQUE, 350 MG, 150ML 150ML use d. 12:37:40 HR=59 bpm, REMM=838/70 mmhg, SpO2=93.0 %, Resp=3 B/min, Pain=0, Kanika=10, Cheung=2 12:40:26 Catheter was removed 12:40:44 Case End (Physician broke scrub) 12:43:13 HR=49 bpm, XKST=918/75 mmhg, SpO2=93.0 %, Resp=19 B/min, Pain=0, Kanika=10, Cheung=2 Radial Compression Device Used. 11 mLs of air placed in BAND, RADIAL COMPRESSION TR SHORT 24 2 4CM. Affected 12:43:53 hand 96 % O2 saturation. 12:44:13 Cine recording checked. 12:44:55 Bedside Report will be given. 12:45:01 A Left Heart Cath was performed. Assessment: Final Case, HR=50 BPM, Rhythm=Sinus, EBUF=812/75 mmhg, Chest Pain=0, Edema=None, Color=Normal, Skin = Warm, Dry 12:45:07 Right Pulses: Josiah Ped=3, Femoral=2, Radial=2 Neurological: State=Alert, Ox3, MARCANO Respiration: Resp=12 B/min, SpO2=95 %, O2=0 lpm 12:47:38 HR=49 bpm, CNKV=102/79 mmhg, SpO2=96.0 %, Resp=13 B/min, Pain=0, Kanika=10, Cheung=2 12:52:39 HR=43 bpm, YBUR=990/73 mmhg, SpO2=93.0 %, Resp=6 B/min, Pain=0, Kanika=10, Cheung=2 12:54:06 Vitals capture stopped. 12:54:13 [facility] End Study - Contrast Media Used In Study Contrast Total Opened (mL) Total Used (mL) Total Wasted (mL) Omnipaque 150 35 115 End Study - Maximum Contrast Load Max Contrast Load (mL) 413.9 End Study - Radiation Exposure Fluoro Time (minutes) 1.5 End Study - Patient Disposition Complications Transferred To Interventional Outcome No Telemetry Bed No attempt made
--- NOTE | 2018-05-15 13:01 | MA ---
cc: Drew Horton MD DATE: 05/15/2018 DATE OF PROCEDURE: 05/15/2018 INDICATION FOR PROCEDURE: Non-ST elevation myocardial infarction eyes. PROCEDURES PERFORMED: 1. Fluoroscopy with interpretation. 2. Coronary angiography. METHOD: Risks, benefits, and alternatives discussed with the patient. The patient understood and consented to the procedure. The patient was brought to the catheterization lab, placed on the catheterization table. The right wrist was prepped and draped in standard sterile fashion. The right wrist was anesthetized with 2% lidocaine. The right radial artery was cannulated and a 6-[place] 7 cm sheath was placed without difficulty. CORONARY ANGIOGRAPHY: 1. Left main coronary has mild luminal irregularities. 2. Left anterior descending coronary has a 75% hazy eccentric stenosis proximally with a tandem 30-40% stenosis in the proximal to mid segment at the bifurcation of the diagonal branch. The remainder of the left anterior descending coronary artery and diagonal branch had minor luminal irregularities. 3. The circumflex gives rise to a large obtuse marginal branch, which is 95% subtotally occluded. There is a very small ramus intermedius branch. 4. Right coronary has an anterior takeoff and an 80% proximal stenosis. It is a dominant vessel giving rise to a posterior descending branch. CONCLUSION: Severe 3-vessel nikolski coronary artery disease. PLAN: We will consult cardiothoracic surgery for consideration of bypass. Drew Horton MD JAROD/KD , 12:46 PM , 12:54 PM
[2018-05-15] MEDS ORDERED: Dextrose 50% in Water 50 ML Vial IV.PUSH PRN (14:37)
[2018-05-15] MEDS ORDERED: Insulin Regular (For Infusion) 100 UNIT in Sodium Chlor 0.9% Inj 99 ML IV.CONT PRN (14:37)
[2018-05-15] MEDS ORDERED: Chlorhexidine 4% Topical 120 APPLIC/120 ML Bottle TOPICAL SCH (14:45)
[2018-05-15] MEDS ORDERED: Sodium Chlor 0.9% Inj 57.5 ML, Papaverine Inj 60 MG, Nitroglycerin Inj 100 MCG, Verapam... IRRIGATION SCH ×3 (14:45)
[2018-05-15] MEDS ORDERED: Sodium Chloride 0.9% Irr Bot 500 ML, ceFAZolin Inj 500 MG IRRIGATION SCH ×2 (14:45)
--- NOTE | 2018-05-15 14:48 | ECHRPT ---
Indication: CONCLUSIONS The left ventricular systolic function is normal with an estimated ejection fraction in the range of 60-65%. Normal left ventricular size. Wall thickness is normal. No regional wall motion abnormalities are present. BP: / HR: Rhythm: Sinus MEASUREMENTS (Male / Female) Normal Values Technical Quality:Excellent 2D ECHO LV Diastolic Diameter PLAX 3.6 cm 4.2 - 5.9 / 3.9 - 5.3 cm LV Systolic Diameter PLAX 2.5 cm IVS Diastolic Thickness 1.1 cm 0.6 - 1.0 / 0.6 - 0.9 cm LVPW Diastolic Thickness 1.1 cm 0.6 - 1.0 / 0.6 - 0.9 cm LV Relative Wall Thickness 0.6 RV Internal Dim ED PLAX 3.0 cm LVOT Diameter 2.0 cm LA Systolic Diameter LX 3.2 cm 3.0 - 4.0 / 2.7 - 3.8 cm LV Ejection Fraction MOD 4C 72.2 % LV Ejection Fraction 4C AL 71.9 % M-MODE Aortic Root Diameter MM 2.4 cm LA Systolic Diameter MM 3.3 cm LA Ao Ratio MM 1.4 AV Cusp Separation MM 2.1 cm DOPPLER AV Peak Velocity 144.0 cm/s AV Peak Gradient 8.3 mmHg LVOT Peak Velocity 110.0 cm/s LVOT Peak Gradient 4.8 mmHg AV Area Cont Eq pk 2.4 cm MV Area PHT 4.6 cm Mitral E Point Velocity 83.4 cm/s Mitral A Point Velocity 52.8 cm/s Mitral E to A Ratio 1.6 LV E' Lateral Velocity 9.4 cm/s Mitral E to LV E' Lateral Ratio 8.9 LV E' Septal Velocity 8.8 cm/s Mitral E to LV E' Septal Ratio 9.5 PV Peak Velocity 97.7 cm/s PV Peak Gradient 3.8 mmHg FINDINGS LEFT VENTRICLE The left ventricular systolic function is normal with an estimated ejection fraction in the range of 60-65%. Normal left ventricular size. Wall thickness is normal. No regional wall motion abnormalities are present. RIGHT VENTRICLE Normal right ventricular size and systolic function. LEFT ATRIUM The left atrial size is normal. RIGHT ATRIUM The right atrial size is normal. ATRIAL SEPTUM Normal atrial septal thickness without atrial level shunting by limited color doppler interrogation. AORTA The aortic root and proximal ascending aorta are normal in size on limited imaging. MITRAL VALVE Structurally normal mitral valve. No mitral valve stenosis or regurgitation. AORTIC VALVE Trileaflet aortic valve. No aortic valve stenosis or regurgitation. TRICUSPID VALVE Structurally normal tricuspid valve. No tricuspid valve stenosis or regurgitation. PULMONARY VALVE The pulmonary valve is not well visualized. VESSELS The inferior vena cava is normal in size. PERICARDIUM No pericardial effusion. Arlene Arthur MD, FACC (Electronically Signed) Final Date:15 May 2018 14:47
[2018-05-15] MEDS ORDERED: ceFAZolin Inj 2,000 MG in Sodium Chlor 0.9% Inj 80 ML IV.SIG SCH (15:00)
--- NOTE | 2018-05-15 15:30 | MB ---
cc: Ana Lilia Thao Jacqueline R ARNP DATE: 05/15/2018 DATE OF : 1955 HISTORY OF PRESENT ILLNESS: A 63-year-old male who was transferred from the [facility] after presenting with symptomatic chest pain while mowing the lawn. Described it similar to presentation to his prior angina. Apparently he had some chest pain and received a stent in [address] Nav Catherine, was found to have non-STEMI with elevated troponins of 0.19. EKG showed sinus bradycardia, no acute change. Risk factors include coronary artery disease, age, hypertension, and hyperlipidemia. He states he last saw Dr. Catherine in August of 2017. Apparently, Dr. Horton did try to contact [facility] but they did not have any records on him. He was transferred here and had a heart catheterization by Dr. Horton which showed LAD had a 75% eccentric stenosis with a tandem 30-40% stenosis in the proximal to mid-segment at the bifurcation of the diagonal branch. The circumflex is about 95% subtotally occluded. The right coronary artery had an 80% proximal stenosis. We were consulted for severe 3-vessel coronary artery disease. PAST MEDICAL HISTORY: Includes coronary artery disease, hypertension, hyperlipidemia. PAST SURGICAL HISTORY: Include prior stenting. He has had a right inguinal hernia repair. ALLERGIES: NO KNOWN ALLERGIES. HOME MEDICATIONS: Include: 1. Aspirin. 2. Plavix. 3. Losartan. 4. Simvastatin. FAMILY HISTORY: Noncontributory. SOCIAL HISTORY: The patient is single. No children. Smoked for 40 years, 1 pack down to half a pack. No alcohol. Rare marijuana. No illicit IV drugs. REVIEW OF SYSTEMS: GENERAL: No night sweats, fever, heat and cold intolerance. SKIN: No psoriasis, itching or hives. HEENT: No blurred vision, hearing loss. RESPIRATORY: No cough, shortness of breath. CARDIOVASCULAR: As above in the HPI. GASTROINTESTINAL: No diarrhea or vomiting. GENITOURINARY: No burning, frequency, urgency. CENTRAL NERVOUS SYSTEM: No history of TIA, CVA or seizure disorder. ENDOCRINOLOGY: No history of diabetes or hypothyroidism. PHYSICAL EXAMINATION: VITAL SIGNS: Blood pressure 150/70, heart rate of 48, afebrile. O2 saturation 97 on room air. GENERAL: Awake, alert, in no acute distress. HEENT: Head is normocephalic, atraumatic. Pupils equal and reactive. Oral mucosa pink, moist. He has got some lost teeth on the top portion of his mouth. NECK: Supple. No JVD. HEART: Sounds S1, S2. Regular rate and rhythm. No audible rubs, murmurs, or gallops. LUNGS: Clear to auscultation. No wheezes, rales or rhonchi. ABDOMEN: Soft, nontender. No masses or organomegaly. EXTREMITIES: No cyanosis, clubbing, or edema. LABORATORY DATA: Shows hemoglobin of 14, hematocrit of 45, white cell count of 9.4, platelet count of 141. Sodium 139, potassium 4.0, BUN 17 with a creatinine of 0.93. Troponin 0.19. Cholesterol 204, LDL 145, HDL of 40. Other workup is pending to include carotid ultrasound, leg vein mapping, pulmonary function testing. ASSESSMENT AND PLAN: This is a 63-year-old male admitted with a non-ST elevation myocardial infarction, prior history of stenting, coronary artery disease, now with 3-vessel disease to the left anterior descending, circumflex, and the right coronary artery. 2-D echo is being planned to evaluate for any valvular disease and ejection fraction. Further workup pending. Procedures, alternatives and risks have been discussed with the patient. STS will be documented once we receive the echocardiogram. Planning at this time will be for coronary artery bypass grafting x3 on 05/18/2018. The patient is agreeable to proceed. KIEL Wise MD JRT/LESLY , 03:10 PM , 03:21 PM
--- NOTE | 2018-05-15 15:42 | XR ---
EXAM DATE: 05/15/2018 3:29 PM EDT AGE/SEX: 63 years / Male INDICATIONS: Evaluate for pneumonia, pneumothorax, or communicable disease. Pre op CABG. CLINICAL DATA: This is the patient's initial encounter. Patient reports that signs and symptoms have been present for 1 day and indicates a pain score of 0/10. MEDICAL/SURGICAL HISTORY: . Hypertension. Coronary artery stent. None. COMPARISON: [facility], CHEST 2V PA&LAT, 05/14/2018. . FINDINGS: A single AP view of the chest demonstrates the lungs to be symmetrically aerated without evidence of mass, infiltrate or effusion. The cardiomediastinal contours are unremarkable. Osseous structures a re intact. CONCLUSION: Negative examination. Electronically signed by: Pradeep Cardona MD 05/15/2018 3:41 PM EDT
[2018-05-15 16:55] LABS: Bilirubin,Urine Negative (Negative); Clarity,Urine Clear (Clear); Color,Urine Straw (Yellw/Straw); Glucose,Urine (UA) Negative (Negative); Leukocyte Esterase,Urine Negative (Negative); Nitrite,Urine Negative (Negative); Specific Gravity,Urine 1.017 (1.002-1.035)
[2018-05-15] MEDS: Mupirocin 2% Nasal Oint Topical Syringe EACH NARE SCH (20:34)
--- NOTE | 2018-05-15 22:34 | US ---
EXAM DATE: 05/15/2018 9:53 PM EDT AGE/SEX: 63 years / Male INDICATIONS: Pre-op cardiac surgery. CLINICAL DATA: This is the patient's initial encounter. Patient reports that signs and symptoms have been present for 1 day and indicates a pain score of 0/10. MEDICAL/SURGICAL HISTORY: Cardiovascular disease. Hypercholesterolemia. Hypertension. Coronar y artery stent. Umbilical hernia repair. COMPARISON: No prior exams available for comparison. VELOCITY PARAMETERS: ICA/CCA Ratio: Right 0.7 , Left 0.9 ICA: Right 87.2 cm/sec, Left 82.0 cm/sec CCA: Right 85.7 cm/sec, Left 87.4 cm/sec ECA: Right 86.6 cm/sec, Left 43.8 cm/sec Vertebral: Right 46.0 cm/sec antegrade, Left 59.0 cm/sec antegrade FINDINGS: Right Carotid: Mild plaque of the bulb and proximal internal carotid artery..The waveforms are withi n normal limits. Left Carotid: Mild plaque at the bulb and proximal internal carotid artery.. The waveforms are withi n normal limits. Other: None. CONCLUSION: 1. Right Internal Carotid Artery: Mild atherosclerotic plaque at the bifurcation without hemodynamic ally significant narrowing. 2. Left Internal Carotid Artery: Mild atherosclerotic plaque at the bifurcation without hemodynamica lly significant narrowing. Electronically signed by: Jeovanny Gaytan MD 05/15/2018 10:32 PM EDT
--- NOTE | 2018-05-15 22:35 | US ---
EXAM DATE: 05/15/2018 9:58 PM EDT AGE/SEX: 63 years / Male INDICATIONS: Pre-op cardiac surgery. CLINICAL DATA: This is the patient's initial encounter. Patient reports that signs and symptoms have been present for 1 day and indicates a pain score of 0/10. MEDICAL/SURGICAL HISTORY: Cardiovascular disease. Hypercholesterolemia. Hypertension. Umbilic al hernia repair. Coronary artery stent. COMPARISON: [facility] – [place] VENOUS DOPPLER LEG BI, 05/15/2018. . MEASUREMENTS: RIGHT THIGH: Proximal:__5 mm Mid:__ 1 mm Distal:__2 mm LEFT THIGH: Proximal:__3 mm Mid:__1 mm Distal:__2 mm RIGHT CALF: Proximal:__1 mm Mid:__1 mm Distal:__Non-visualized LEFT CALF: Proximal:__Non-visualized Mid:__Non-visualized Distal:__Non-visualized FINDINGS: The venous system of the lower extremities are patent by color Doppler imaging. Measurements of the leg veins (in mm) are listed above. CONCLUSION: Bilateral saphenous vein measurements as above. Distal vessels are diminutive, left worse than right. Electronically signed by: Jeovanny Gaytan MD 05/15/2018 10:34 PM EDT
--- NOTE | 2018-05-15 22:35 | US ---
EXAM DATE: 05/15/2018 9:55 PM EDT AGE/SEX: 63 years / Male INDICATIONS: Pre-op cardiac surgery. CLINICAL DATA: This is the patient's initial encounter. Patient reports that signs and symptoms have been present for 1 day and indicates a pain score of 0/10. MEDICAL/SURGICAL HISTORY: Cardiovascular disease. Hypercholesterolemia. Hypertension. Coronar y artery stent. Umbilical hernia repair. COMPARISON: No prior exams available for comparison. TECHNIQUE: Venous ultrasound of both lower extremities was performed from the inguinal ligament to t he proximal calf. Real-time, color Doppler and spectral tracing, compression and augmentation techni ques were used. FINDINGS: Right Leg: Normal compression of the deep venous system from the inguinal region to the proximal baltazar f. No echogenic clot is seen. Normal response of the venous system to augmentation and respiration. Left Leg: Normal compression of the deep venous system from the inguinal region to the proximal calf . No echogenic clot is seen. Normal response of the venous system to augmentation and respiration. Other: None. CONCLUSION: No venous thrombosis of either lower extremity. Electronically signed by: Jeovanny Gaytan MD 05/15/2018 10:33 PM EDT
--- NOTE | 2018-05-15 23:28 | ECG ---
Date Performed: 05/14/2018 Time Performed: 17:55:09 PTAGE: 63 years EKG: SINUS BRADYCARDIA WITH FIRST DEGREE AV BLOCK ABNORMAL ECG PREVIOUS TRACING : 05/14/2018 15.24 Since the previous tracing, no significant change noted DOCTOR: Zak Emery Interpretating Date/Time 05/15/2018 23:27:44
--- NOTE | 2018-05-15 23:32 | ECG ---
Date Performed: 05/14/2018 Time Performed: 15:24:14 PTAGE: 63 years EKG: SINUS BRADYCARDIA WITH FIRST DEGREE AV BLOCK ABNORMAL ECG PREVIOUS TRACING : 05/14/2018 13.26 Since the previous tracing, no significant change noted DOCTOR: Zak Emery Interpretating Date/Time 05/15/2018 23:32:08
--- NOTE | 2018-05-15 23:37 | ECG ---
Date Performed: 05/14/2018 Time Performed: 13:26:10 PTAGE: 63 years EKG: SINUS BRADYCARDIA BORDERLINE ECG NO PREVIOUS TRACING DOCTOR: Zak Emery Interpretating Date/Time 05/15/2018 23:36:57
[2018-05-16 06:43] LABS: Baso % (Auto) 0.5 % (0.0-2.0); Eos # (Auto) 0.2 th/mm3 (0.0-0.4); Eos % (Auto) 2.7 % (0.0-4.0); Hematocrit 46.5 % (39.0-51.0); Hemoglobin 15.5 gm/dL (13.0-17.0); Lymph # (Auto) 1.9 th/mm3 (1.0-4.8); Lymph % (Auto) 24.3 % (9.0-44.0); Mean Corpuscular HGB Conc 33.2 % (32.0-36.0); Mean Corpuscular Hemoglobin 28.4 pg (27.0-34.0); Mean Corpuscular Volume 85.6 fL (80.0-100.0); Mean Platelet Volume 8.2 fL (7.0-11.0); Mono # (Auto) 0.6 th/mm3 (0.0-0.9); Mono % (Auto) 7.8 % (0.0-8.0); Neut # (Auto) 5.2 th/mm3 (1.8-7.7); Neut % (Auto) 64.7 % (16.0-70.0); Platelet Count 162 th/mm3 (150-450); Red Blood Count 5.44 mil/mm3 (4.50-5.90); Red Cell Distribution Width 13.4 % (11.6-17.2)
[2018-05-16 06:54] LABS: Albumin 3.3 g/dL (3.4-5.0); Anion Gap 10 meq/L (5-15); Aspartate Aminotransferase 18 U/L (15-37); Blood Urea Nitrogen 15 mg/dL (7-18); Calcium 8.5 mg/dL (8.5-10.1); Carbon Dioxide 24.5 meq/L (21.0-32.0); Chloride 106 meq/L (98-107); Glomerular Filtration Rate Greater Than 89 mL/min (>89); Glucose,Random 90 mg/dL (74-106); Potassium 3.7 meq/L (3.5-5.1); Sodium 140 meq/L (136-145)
[2018-05-16 06:56] LABS: Alanine Aminotransferase 23 U/L (12-78)
[2018-05-16 06:57] LABS: Alkaline Phosphatase 77 U/L (45-117); Total Protein 6.5 g/dL (6.4-8.2)
[2018-05-16] MEDS: Mupirocin 2% Nasal Oint Topical Syringe EACH NARE SCH ×2 (09:25→20:39)
--- NOTE | 2018-05-16 09:44 | P.PNCV ---
- Note Subjective/Hospital Course: 05/16 pt denies any chest pain last night Carotid US OK leg vein mapping : no targets lower legs, ok for upper harvesting for surgery on monday sts data discussed with pt RISK SCORES About the STS Risk Calculator Procedure: CAB Only Risk of Mortality: 0.706% Morbidity or Mortality: 9.181% Long Length of Stay: 3.166% Short Length of Stay: 61.188% Permanent Stroke: 0.757% Prolonged Ventilation: 6.233% DSW Infection: 0.393% Renal Failure: 1.039% Reoperation: 4.31% Objective: Vital Signs - 24 hr 05/15/18 10:06 05/15/18 13:20 05/15/18 13:30 Temperature Pulse Rate 48 L 48 L Respiratory Rate 15 14 Blood Pressure 132/75 131/62 Pulse Oximetry 96 96 95 05/15/18 13:45 05/15/18 14:00 05/15/18 14:30 Temperature Pulse Rate 49 L 47 L 47 L Respiratory Rate 15 15 14 Blood Pressure 137/69 153/74 H 149/70 H Pulse Oximetry 96 97 97 05/15/18 15:00 05/15/18 15:30 05/15/18 16:00 Temperature 98.4 F Pulse Rate 58 L 54 L 54 L Respiratory Rate 17 16 17 Blood Pressure 164/72 H 125/60 152/74 H Pulse Oximetry 97 95 97 05/15/18 16:30 05/15/18 16:38 05/15/18 17:00 Temperature Pulse Rate 49 L 57 L Respiratory Rate 16 Blood Pressure 116/61 Pulse Oximetry 95 96 05/15/18 17:30 05/15/18 18:00 05/15/18 19:00 Temperature Pulse Rate 55 L 51 L 50 L Respiratory Rate 16 Blood Pressure 137/68 Pulse Oximetry 96 05/15/18 19:28 05/15/18 20:00 05/15/18 21:00 Temperature 97.6 F Pulse Rate 50 L 50 L 45 L Respiratory Rate Blood Pressure 117/60 117/60 Pulse Oximetry 96 05/15/18 22:00 05/15/18 23:00 05/16/18 00:00 Temperature 97.8 F Pulse Rate 49 L 58 L 58 L Respiratory Rate Blood Pressure 112/61 Pulse Oximetry 97 05/16/18 01:00 05/16/18 02:00 05/16/18 03:00 Temperature Pulse Rate 53 L 55 L 45 L Respiratory Rate Blood Pressure Pulse Oximetry 05/16/18 04:00 05/16/18 05:00 05/16/18 06:00 Temperature 97.6 F Pulse Rate 53 L 53 L 48 L Respiratory Rate Blood Pressure 121/66 Pulse Oximetry 97 05/16/18 07:00 05/16/18 07:29 05/16/18 08:00 Temperature 97.4 F L Pulse Rate 55 L 60 54 L Respiratory Rate 15 15 Blood Pressure 118/73 Pulse Oximetry 94 L GENERAL: SKIN: Warm and dry. HEAD: Atraumatic. Normocephalic. EYES: Pupils equal and round. No scleral icterus. No injection or drainage. ENT: No nasal bleeding or discharge. Mucous membranes pink and moist. NECK: Trachea midline. No JVD. CARDIOVASCULAR: Regular rate and rhythm. RESPIRATORY: No accessory muscle use. Clear to auscultation. Breath sounds equal bilaterally. GASTROINTESTINAL: Abdomen soft, non-tender, nondistended. Hepatic and splenic margins not palpable. MUSCULOSKELETAL: Extremities without clubbing, cyanosis, or edema. No obvious deformities. NEUROLOGICAL: Awake and alert. No obvious cranial nerve deficits. Motor grossly within normal limits. Five out of 5 muscle strength in the arms and legs. Normal speech. PSYCHIATRIC: Appropriate mood and affect; insight and judgment normal. Labs: Laboratory Results - last 12 hr 05/16/18 05/16/18 05:46 05:46 WBC 8.0 RBC 5.44 Hgb 15.5 Hct 46.5 MCV 85.6 MCH 28.4 MCHC 33.2 RDW 13.4 Plt Count 162 MPV 8.2 Neut % (Auto) 64.7 Lymph % (Auto) 24.3 [place] % (Auto) 7.8 Eos % (Auto) 2.7 Baso % (Auto) 0.5 Neut # (Auto) 5.2 Lymph # (Auto) 1.9 [place] # (Auto) 0.6 Eos # (Auto) 0.2 Baso # (Auto) 0.0 WBC Differential . Differential Comment Auto diff final Sodium 140 Potassium 3.7 Chloride 106 Carbon Dioxide 24.5 Anion Gap 10 BUN 15 Creatinine 0.86 Estimated GFR Greater than 89 Random Glucose 90 Calcium 8.5 Total Bilirubin 0.5 AST 18 ALT 23 Alkaline Phosphatase 77 Total Protein 6.5 Albumin 3.3 L Result Diagrams: 05/16/18 05:46 05/16/18 05:46 - Plan (1) Unstable angina Plan: on ASA, statin , BB for surgery on monday off plavix and ARB
--- NOTE | 2018-05-16 10:19 | P.PNIM ---
Subjective Interval history: Three-vessel disease with no option for stenting based on heart cath. CABG planned for Monday. Patient has no complaints of chest pain today. She is ambulating well. Physical Exam Vital signs: Vital Signs 05/15/18 13:20 05/15/18 13:30 05/15/18 13:45 Temperature Pulse Rate 48 L 48 L 49 L Respiratory Rate 15 14 15 Blood Pressure 132/75 131/62 137/69 Pulse Oximetry 96 95 96 05/15/18 14:00 05/15/18 14:30 05/15/18 15:00 Temperature 98.4 F Pulse Rate 47 L 47 L 58 L Respiratory Rate 15 14 17 Blood Pressure 153/74 H 149/70 H 164/72 H Pulse Oximetry 97 97 97 05/15/18 15:30 05/15/18 16:00 05/15/18 16:30 Temperature Pulse Rate 54 L 54 L 49 L Respiratory Rate 16 17 16 Blood Pressure 125/60 152/74 H 116/61 Pulse Oximetry 95 97 95 05/15/18 16:38 05/15/18 17:00 05/15/18 17:30 Temperature Pulse Rate 57 L 55 L Respiratory Rate 16 Blood Pressure 137/68 Pulse Oximetry 96 96 05/15/18 18:00 05/15/18 19:00 05/15/18 19:28 Temperature Pulse Rate 51 L 50 L 50 L Respiratory Rate Blood Pressure 117/60 Pulse Oximetry 05/15/18 20:00 05/15/18 21:00 05/15/18 22:00 Temperature 97.6 F Pulse Rate 50 L 45 L 49 L Respiratory Rate Blood Pressure 117/60 Pulse Oximetry 96 05/15/18 23:00 05/16/18 00:00 05/16/18 01:00 Temperature 97.8 F Pulse Rate 58 L 58 L 53 L Respiratory Rate Blood Pressure 112/61 Pulse Oximetry 97 05/16/18 02:00 05/16/18 03:00 05/16/18 04:00 Temperature 97.6 F Pulse Rate 55 L 45 L 53 L Respiratory Rate Blood Pressure 121/66 Pulse Oximetry 97 05/16/18 05:00 05/16/18 06:00 05/16/18 07:00 Temperature Pulse Rate 53 L 48 L 55 L Respiratory Rate 15 Blood Pressure Pulse Oximetry 05/16/18 07:29 05/16/18 08:00 05/16/18 09:00 Temperature 97.4 F L Pulse Rate 60 54 L 50 L Respiratory Rate 15 Blood Pressure 118/73 Pulse Oximetry 94 L Intake & Output 05/15/18 05/16/18 05/16/18 18:59 06:59 18:59 Intake Total 1302 / 1302 360 / 360 Output Total 375 / 375 450 / 450 Balance 927 / 927 -90 / -90 Weight 72.2 kg Intake: IV 15 / 15 Heparin/NS PF Inj 1,000 ML @ 0 15 / 15 mls/hr .ROUTE .[facility] Rx#: [id number] Oral 920 / 920 360 / 360 Other 367 / 367 Output: Urine 375 / 375 450 / 450 Other: Other Intake Source Saline Solution # Voids 2 Date of Last Bowel Movement 05/15/18 05/15/18 05/16/18 # Bowel Movements 1 1 Narrative: GENERAL: NAD, A&Ox3 HEAD: Normocephalic. NECK: Supple, trachea midline. No lymphadenopathy. EYES: No scleral icterus. No injection or drainage. CARDIOVASCULAR: Regular rate and rhythm without murmurs, gallops, or rubs. RESPIRATORY: Breath sounds equal bilaterally. No accessory muscle use. GASTROINTESTINAL: Abdomen soft, non-tender, nondistended. MUSCULOSKELETAL: No cyanosis, or edema. SKIN: Warm and dry. NEURO: No focal neurological deficits. Results - Labs CBC & Chem 7: 05/16/18 05:46 05/16/18 05:46 Laboratory Results - last 24 hr 05/15/18 05/15/18 05/15/18 14:42 15:40 16:20 WBC RBC Hgb Hct MCV MCH MCHC RDW Plt Count MPV Neut % (Auto) Lymph % (Auto) [place] % (Auto) Eos % (Auto) Baso % (Auto) Neut # (Auto) Lymph # (Auto) [place] # (Auto) Eos # (Auto) Baso # (Auto) WBC Differential Differential Comment APTT 40.8 H Sodium Potassium Chloride Carbon Dioxide Anion Gap BUN Creatinine Estimated GFR Random Glucose Calcium Total Bilirubin AST ALT Alkaline Phosphatase Total Protein Albumin Urine Color Straw Urine Clarity Clear Urine pH 7.0 Ur Specific [place] 1.017 Urine Protein Negative Urine Glucose (UA) Negative Urine Ketones Negative Urine Occult Blood Small H Urine Nitrate Negative Urine Bilirubin Negative Urine Urobilinogen Less than 2 Ur Leukocyte Esterase Negative Urine RBC 1 Urine WBC 1 Micro UA Comment Culture not ind Urine Culture Comments Culture not ind Nasal Screen MRSA (PCR) Not detected 05/16/18 05/16/18 05:46 05:46 WBC 8.0 RBC 5.44 Hgb 15.5 Hct 46.5 MCV 85.6 MCH 28.4 MCHC 33.2 RDW 13.4 Plt Count 162 MPV 8.2 Neut % (Auto) 64.7 Lymph % (Auto) 24.3 [place] % (Auto) 7.8 Eos % (Auto) 2.7 Baso % (Auto) 0.5 Neut # (Auto) 5.2 Lymph # (Auto) 1.9 [place] # (Auto) 0.6 Eos # (Auto) 0.2 Baso # (Auto) 0.0 WBC Differential . Differential Comment Auto diff final APTT Sodium 140 Potassium 3.7 Chloride 106 Carbon Dioxide 24.5 Anion Gap 10 BUN 15 Creatinine 0.86 Estimated GFR Greater than 89 Random Glucose 90 Calcium 8.5 Total Bilirubin 0.5 AST 18 ALT 23 Alkaline Phosphatase 77 Total Protein 6.5 Albumin 3.3 L Urine Color Urine Clarity Urine pH Ur Specific [place] Urine Protein Urine Glucose (UA) Urine Ketones Urine Occult Blood Urine Nitrate Urine Bilirubin Urine Urobilinogen Ur Leukocyte Esterase Urine RBC Urine WBC Micro UA Comment Urine Culture Comments Nasal Screen MRSA (PCR) - Imaging Impressions Chest X-Ray 05/15/18 00:00 CONCLUSION: Negative examination. Carotid Doppler Study 05/15/18 14:37 CONCLUSION: 1. Right Internal Carotid Artery: Mild atherosclerotic plaque at the bifurcation without hemodynamically significant narrowing. 2. Left Internal Carotid Artery: Mild atherosclerotic plaque at the bifurcation without hemodynamically significant narrowing. Lower Extremity Ultrasound 05/15/18 14:37 CONCLUSION: Bilateral saphenous vein measurements as above. Distal vessels are diminutive, left worse than right. Venous Doppler Study 05/15/18 14:37 CONCLUSION: No venous thrombosis of either lower extremity. Assessment and Plan - Assessment (1) Non-ST elevation myocardial infarction (NSTEMI) Code(s): I21.4 - Non-ST elevation (NSTEMI) myocardial infarction Status: Acute (2) Unstable angina Code(s): I20.0 - Unstable angina Status: Acute - Plan 63-year-old male with history of coronary artery disease and previous stents, admitted secondary to chest pain No stenting options during heart cath. Three-vessel disease, CABG planned for Monday. Non-ST elevated myocardial infarction Coronary artery disease History of coronary stents Patient counseled to quit smoking Continue following on telemetry Heart cath planned for today Continue heparin Cardiology following Hypertension Continue baseline treatment Follow blood pressures Adjust treatments as needed Hyperlipidemia Continue present treatment Follow as an outpatient Nicotine dependence Patient counseled to quit DVT prevention Heparin
[2018-05-17 05:13] LABS: Albumin 3.5 g/dL (3.4-5.0); Anion Gap 10 meq/L (5-15); Aspartate Aminotransferase 17 U/L (15-37); Blood Urea Nitrogen 20 mg/dL (7-18); Calcium 8.9 mg/dL (8.5-10.1); Chloride 105 meq/L (98-107); Glomerular Filtration Rate 85 mL/min (>89); Glucose,Random 100 mg/dL (74-106); Potassium 3.6 meq/L (3.5-5.1); Sodium 140 meq/L (136-145)
[2018-05-17 05:14] LABS: Alanine Aminotransferase 26 U/L (12-78)
[2018-05-17 05:16] LABS: Alkaline Phosphatase 76 U/L (45-117); Total Protein 6.9 g/dL (6.4-8.2)
[2018-05-17] MEDS: Mupirocin 2% Nasal Oint Topical Syringe EACH NARE SCH ×2 (08:29→22:49)
--- NOTE | 2018-05-17 10:48 | P.PNIM ---
Subjective Interval history: Asymptomatic this morning. Resting constantly. Plan for CABG tomorrow. Physical Exam Vital signs: Vital Signs 05/16/18 11:00 05/16/18 11:50 05/16/18 12:00 Temperature 97.8 F Pulse Rate 50 L 50 L 61 Respiratory Rate 17 Blood Pressure 163/74 H Pulse Oximetry 93 L 05/16/18 13:00 05/16/18 14:00 05/16/18 15:00 Temperature Pulse Rate 54 L 62 53 L Respiratory Rate Blood Pressure Pulse Oximetry 05/16/18 15:41 05/16/18 16:00 05/16/18 17:00 Temperature 97.8 F Pulse Rate 59 L 56 L 65 Respiratory Rate 17 Blood Pressure 119/71 Pulse Oximetry 93 L 05/16/18 18:00 05/16/18 19:00 05/16/18 20:00 Temperature 98.1 F Pulse Rate 59 L 52 L 48 L Respiratory Rate Blood Pressure 133/81 Pulse Oximetry 95 05/16/18 21:00 05/16/18 22:00 05/16/18 23:00 Temperature Pulse Rate 50 L 48 L 50 L Respiratory Rate Blood Pressure Pulse Oximetry 05/17/18 00:00 05/17/18 01:00 05/17/18 02:00 Temperature 98 F Pulse Rate 50 L 48 L 51 L Respiratory Rate Blood Pressure 137/65 Pulse Oximetry 96 05/17/18 03:00 05/17/18 04:00 05/17/18 05:00 Temperature 97.8 F Pulse Rate 46 L 50 L 48 L Respiratory Rate Blood Pressure 138/65 Pulse Oximetry 97 05/17/18 06:00 05/17/18 07:00 05/17/18 08:00 Temperature 97.9 F Pulse Rate 47 L 51 L 50 L Respiratory Rate 16 Blood Pressure 117/65 Pulse Oximetry 96 05/17/18 09:00 05/17/18 10:00 Temperature Pulse Rate 48 L 46 L Respiratory Rate Blood Pressure Pulse Oximetry Intake & Output 05/16/18 05/17/18 05/17/18 18:59 06:59 18:59 Intake Total 1340 / 1340 960 / 960 Output Total 700 / 700 Balance 1340 / 1340 260 / 260 Weight 71.8 kg Intake: Oral 1340 / 1340 960 / 960 Output: Urine 700 / 700 Other: # Voids 3 Date of Last Bowel Movement 05/16/18 05/16/18 # Bowel Movements 1 Narrative: GENERAL: NAD, A&Ox3 HEAD: Normocephalic. NECK: Supple, trachea midline. No lymphadenopathy. EYES: No scleral icterus. No injection or drainage. CARDIOVASCULAR: Regular rate and rhythm without murmurs, gallops, or rubs. RESPIRATORY: Breath sounds equal bilaterally. No accessory muscle use. GASTROINTESTINAL: Abdomen soft, non-tender, nondistended. MUSCULOSKELETAL: No cyanosis, or edema. SKIN: Warm and dry. NEURO: No focal neurological deficits. Results - Labs CBC & Chem 7: 05/16/18 05:46 05/17/18 03:52 Laboratory Results - last 24 hr 05/17/18 05/17/18 03:50 03:52 Sodium 140 Potassium 3.6 Chloride 105 Carbon Dioxide 25.0 Anion Gap 10 BUN 20 H Creatinine 0.91 Estimated GFR 85 L Random Glucose 100 Calcium 8.9 Total Bilirubin 0.5 AST 17 ALT 26 Alkaline Phosphatase 76 Total Protein 6.9 Albumin 3.5 Blood Type A Positive Blood Type Recheck Required Antibody Screen Negative MTS Gel Crossmatch See Detail Assessment and Plan - Assessment (1) Non-ST elevation myocardial infarction (NSTEMI) Code(s): I21.4 - Non-ST elevation (NSTEMI) myocardial infarction Status: Acute (2) Unstable angina Code(s): I20.0 - Unstable angina Status: Acute - Plan 63-year-old male with history of coronary artery disease and previous stents, admitted secondary to chest pain CBC, CMP, PT, PTT in a.m. No stenting options during heart cath. Three-vessel disease, CABG planned for tomorrow. Non-ST elevated myocardial infarction Coronary artery disease History of coronary stents Patient counseled to quit smoking Continue following on telemetry Heart cath planned for today Continue heparin Cardiology following Hypertension Continue baseline treatment Follow blood pressures Adjust treatments as needed Hyperlipidemia Continue present treatment Follow as an outpatient Nicotine dependence Patient counseled to quit DVT prevention Heparin
--- NOTE | 2018-05-17 12:27 | P.PNCV ---
- Note Subjective/Hospital Course: 05/16 pt denies any chest pain last night Carotid US OK leg vein mapping : no targets lower legs, ok for upper harvesting for surgery on thursday 05/17 no chest pain , for surgery in am Objective: Vital Signs - 24 hr 05/16/18 13:00 05/16/18 14:00 05/16/18 15:00 Temperature Pulse Rate 54 L 62 53 L Respiratory Rate Blood Pressure Pulse Oximetry 05/16/18 15:41 05/16/18 16:00 05/16/18 17:00 Temperature 97.8 F Pulse Rate 59 L 56 L 65 Respiratory Rate 17 Blood Pressure 119/71 Pulse Oximetry 93 L 05/16/18 18:00 05/16/18 19:00 05/16/18 20:00 Temperature 98.1 F Pulse Rate 59 L 52 L 48 L Respiratory Rate Blood Pressure 133/81 Pulse Oximetry 95 05/16/18 21:00 05/16/18 22:00 05/16/18 23:00 Temperature Pulse Rate 50 L 48 L 50 L Respiratory Rate Blood Pressure Pulse Oximetry 05/17/18 00:00 05/17/18 01:00 05/17/18 02:00 Temperature 98 F Pulse Rate 50 L 48 L 51 L Respiratory Rate Blood Pressure 137/65 Pulse Oximetry 96 05/17/18 03:00 05/17/18 04:00 05/17/18 05:00 Temperature 97.8 F Pulse Rate 46 L 50 L 48 L Respiratory Rate Blood Pressure 138/65 Pulse Oximetry 97 05/17/18 06:00 05/17/18 07:00 05/17/18 08:00 Temperature 97.9 F Pulse Rate 47 L 51 L 50 L Respiratory Rate 16 Blood Pressure 117/65 Pulse Oximetry 96 05/17/18 09:00 05/17/18 10:00 05/17/18 11:00 Temperature Pulse Rate 48 L 46 L 60 Respiratory Rate Blood Pressure Pulse Oximetry 05/17/18 12:00 Temperature 97.7 F Pulse Rate 52 L Respiratory Rate 16 Blood Pressure 124/66 Pulse Oximetry 97 GENERAL: SKIN: Warm and dry. HEAD: Normocephalic. EYES: No scleral icterus. No injection or drainage. NECK: Supple, trachea midline. No JVD or lymphadenopathy. CARDIOVASCULAR: Regular rate and rhythm without murmurs, gallops, or rubs. RESPIRATORY: Breath sounds equal bilaterally. No accessory muscle use. GASTROINTESTINAL: Abdomen soft, non-tender, nondistended. MUSCULOSKELETAL: No cyanosis, or edema. BACK: Nontender without obvious deformity. No CVA tenderness. Labs: Laboratory Results - last 12 hr 05/17/18 05/17/18 03:50 03:52 Sodium 140 Potassium 3.6 Chloride 105 Carbon Dioxide 25.0 Anion Gap 10 BUN 20 H Creatinine 0.91 Estimated GFR 85 L Random Glucose 100 Calcium 8.9 Total Bilirubin 0.5 AST 17 ALT 26 Alkaline Phosphatase 76 Total Protein 6.9 Albumin 3.5 Blood Type A Positive Blood Type Recheck Required Antibody Screen Negative MTS Gel Crossmatch See Detail Result Diagrams: 05/16/18 05:46 05/17/18 03:52 - Plan (1) Unstable angina Plan: on ASA, statin , BB for surgery on monday off plavix and ARB
[2018-05-17 17:30] LABS: Hemoglobin A1c 5.6 % (4.3-6.0)
[2018-05-17] MEDS ORDERED: Temazepam 15 MG Capsule PO PRN (18:36)
[2018-05-18 07:14] LABS: Baso % (Auto) 0.6 % (0.0-2.0); Eos # (Auto) 0.2 th/mm3 (0.0-0.4); Eos % (Auto) 2.3 % (0.0-4.0); Hematocrit 48.6 % (39.0-51.0); Hemoglobin 16.8 gm/dL (13.0-17.0); Lymph # (Auto) 2.3 th/mm3 (1.0-4.8); Lymph % (Auto) 25.4 % (9.0-44.0); Mean Corpuscular HGB Conc 34.6 % (32.0-36.0); Mean Corpuscular Hemoglobin 29.1 pg (27.0-34.0); Mean Corpuscular Volume 84.2 fL (80.0-100.0); Mean Platelet Volume 8.4 fL (7.0-11.0); Mono # (Auto) 0.7 th/mm3 (0.0-0.9); Mono % (Auto) 8.1 % (0.0-8.0); Neut # (Auto) 5.7 th/mm3 (1.8-7.7); Neut % (Auto) 63.6 % (16.0-70.0); Platelet Count 181 th/mm3 (150-450); Red Blood Count 5.77 mil/mm3 (4.50-5.90); Red Cell Distribution Width 13.3 % (11.6-17.2); White Blood Count 8.9 th/mm3 (4.0-11.0)
[2018-05-18 07:26] LABS: Activated Partial Thrombo Time 27.8 sec (24.3-30.1); Prothrombin Time 10.5 sec (9.8-11.6)
[2018-05-18] MEDS ORDERED: Metoprolol Tartrate 25 MG Tablet PO SCH (07:45)
[2018-05-18] MEDS ORDERED: Chlorhexidine Gluconate 2% 1 Pack (2 Cloths) TOPICAL SCH (07:45)
[2018-05-18 07:53] LABS: Alanine Aminotransferase 43 U/L (12-78); Albumin 3.7 g/dL (3.4-5.0); Alkaline Phosphatase 78 U/L (45-117); Anion Gap 6 meq/L (5-15); Aspartate Aminotransferase 24 U/L (15-37); Blood Urea Nitrogen 21 mg/dL (7-18); Calcium 8.9 mg/dL (8.5-10.1); Carbon Dioxide 29.2 meq/L (21.0-32.0); Chloride 106 meq/L (98-107); Glomerular Filtration Rate 73 mL/min (>89); Glucose,Random 98 mg/dL (74-106); Potassium 4.6 meq/L (3.5-5.1); Sodium 141 meq/L (136-145); Total Protein 7.4 g/dL (6.4-8.2)
[2018-05-18] MEDS ORDERED: Sodium Chlor 0.9% Inj 500 ML IV.SIG SCH (08:00)
[2018-05-18] MEDS: Mupirocin 2% Nasal Oint Topical Syringe EACH NARE SCH (08:49)
[2018-05-18] MEDS: Metoprolol Tartrate 25 MG Tablet PO SCH (08:49)
[2018-05-18] MEDS ORDERED: ceFAZolin 2 GM Premix Inj 0 GM/0 ML PIGGYBACK IV.SIG ONE (09:48)
[2018-05-18] MEDS ORDERED: MethylPREDNISolone Sod Succinate Inj 125 MG/2 ML Vial ONE (09:48)
[2018-05-18] MEDS ORDERED: Heparin - SQ 10,000 UNITS/ML Vial ONE ×2 (09:48→09:49)
[2018-05-18] MEDS ORDERED: Albumin Human 25% Inj 50 ML IV.SIG ONE (10:56)
[2018-05-18] MEDS ORDERED: Calcium Chloride Inj 1 GM/10 ML Syringe ONE (10:56)
[2018-05-18] MEDS ORDERED: Cardioplegic Irr Soln 2,000 ML IRRIGATION ONE (10:56)
[2018-05-18] MEDS ORDERED: Heparin 10,000 UNITS/10 ML Vial (for IV use) ONE (10:57)
[2018-05-18] MEDS ORDERED: Potassium Chlor 40 mEq Premix 80 MEQ/200 ML PIGGYBACK ONE (10:58)
--- NOTE | 2018-05-18 11:08 | P.PNIM ---
Subjective Interval history: Patient is feeling well this morning. No complaints. No chest pain overnight or this morning. CABG planned for later this morning. Physical Exam Vital signs: Vital Signs 05/17/18 12:00 05/17/18 13:00 05/17/18 14:00 Temperature 97.7 F Pulse Rate 52 L 53 L 52 L Respiratory Rate 16 Blood Pressure 124/66 Pulse Oximetry 97 05/17/18 15:00 05/17/18 16:00 05/17/18 17:00 Temperature 97.8 F Pulse Rate 47 L 50 L 60 Respiratory Rate 16 Blood Pressure 130/70 Pulse Oximetry 97 05/17/18 18:00 05/17/18 19:00 05/17/18 19:46 Temperature 97.9 F Pulse Rate 54 L 62 62 Respiratory Rate 18 Blood Pressure 125/61 Pulse Oximetry 96 05/17/18 20:00 05/17/18 21:00 05/17/18 22:00 Temperature Pulse Rate 50 L 54 L 52 L Respiratory Rate Blood Pressure Pulse Oximetry 05/17/18 23:00 05/18/18 00:00 05/18/18 01:00 Temperature 97.9 F Pulse Rate 48 L 52 L 54 L Respiratory Rate 20 Blood Pressure 127/69 Pulse Oximetry 96 05/18/18 02:00 05/18/18 03:00 05/18/18 04:00 Temperature Pulse Rate 54 L 62 64 Respiratory Rate Blood Pressure Pulse Oximetry 05/18/18 04:55 05/18/18 05:00 05/18/18 06:00 Temperature 98 F Pulse Rate 54 L 52 L 56 L Respiratory Rate 20 Blood Pressure 131/61 Pulse Oximetry 97 05/18/18 07:00 05/18/18 08:00 05/18/18 09:00 Temperature 97.9 F Pulse Rate 56 L 55 L 58 L Respiratory Rate 16 Blood Pressure 123/68 Pulse Oximetry 97 05/18/18 10:00 Temperature Pulse Rate 44 L Respiratory Rate Blood Pressure Pulse Oximetry Intake & Output 05/17/18 05/18/18 05/18/18 18:59 06:59 18:59 Intake Total 720 / 720 240 / 240 Output Total 550 / 550 Balance 170 / 170 240 / 240 Weight 74.5 kg Intake: Oral 720 / 720 240 / 240 Output: Urine 550 / 550 Other: # Voids 2 Narrative: GENERAL: NAD, A&Ox3 HEAD: Normocephalic. NECK: Supple, trachea midline. No lymphadenopathy. EYES: No scleral icterus. No injection or drainage. CARDIOVASCULAR: Regular rate and rhythm without murmurs, gallops, or rubs. RESPIRATORY: Breath sounds equal bilaterally. No accessory muscle use. GASTROINTESTINAL: Abdomen soft, non-tender, nondistended. MUSCULOSKELETAL: No cyanosis, or edema. SKIN: Warm and dry. NEURO: No focal neurological deficits. Results - Labs CBC & Chem 7: 05/18/18 06:27 05/18/18 06:27 Laboratory Results - last 24 hr 05/17/18 05/17/18 05/18/18 03:50 03:52 06:27 WBC 8.9 RBC 5.77 Hgb 16.8 Hct 48.6 MCV 84.2 MCH 29.1 MCHC 34.6 RDW 13.3 Plt Count 181 MPV 8.4 Neut % (Auto) 63.6 Lymph % (Auto) 25.4 [place] % (Auto) 8.1 H Eos % (Auto) 2.3 Baso % (Auto) 0.6 Neut # (Auto) 5.7 Lymph # (Auto) 2.3 [place] # (Auto) 0.7 Eos # (Auto) 0.2 Baso # (Auto) 0.0 WBC Differential . Differential Comment Auto diff final PT INR APTT Sodium Potassium Chloride Carbon Dioxide Anion Gap BUN Creatinine Estimated GFR Random Glucose Hemoglobin A1c 5.6 Calcium Total Bilirubin AST ALT Alkaline Phosphatase Total Protein Albumin Blood Type A Positive Blood Type Recheck Required Antibody Screen Negative MTS Gel Crossmatch See Detail 05/18/18 05/18/18 06:27 06:27 WBC RBC Hgb Hct MCV MCH MCHC RDW Plt Count MPV Neut % (Auto) Lymph % (Auto) [place] % (Auto) Eos % (Auto) Baso % (Auto) Neut # (Auto) Lymph # (Auto) [place] # (Auto) Eos # (Auto) Baso # (Auto) WBC Differential Differential Comment PT 10.5 INR 1.0 APTT 27.8 Sodium 141 Potassium 4.6 D Chloride 106 Carbon Dioxide 29.2 Anion Gap 6 BUN 21 H Creatinine 1.03 Estimated GFR 73 L Random Glucose 98 Hemoglobin A1c Calcium 8.9 Total Bilirubin 0.7 AST 24 ALT 43 Alkaline Phosphatase 78 Total Protein 7.4 Albumin 3.7 Blood Type Blood Type Recheck Antibody Screen MTS Gel Crossmatch Assessment and Plan - Assessment (1) Non-ST elevation myocardial infarction (NSTEMI) Code(s): I21.4 - Non-ST elevation (NSTEMI) myocardial infarction Status: Acute (2) Unstable angina Code(s): I20.0 - Unstable angina Status: Acute - Plan 63-year-old male with history of coronary artery disease and previous stents, admitted secondary to chest pain No abnormal findings on blood work. No stenting options during heart cath. Three-vessel disease, CABG planned for today. Follow CBC and BMP in a.m. Labs ordered for further monitoring. Non-ST elevated myocardial infarction Coronary artery disease History of coronary stents Patient counseled to quit smoking Continue following on telemetry Heart cath planned for today Continue heparin Cardiology following Hypertension Continue baseline treatment Follow blood pressures Adjust treatments as needed Hyperlipidemia Continue present treatment Follow as an outpatient Nicotine dependence Patient counseled to quit DVT prevention Heparin
[2018-05-18] MEDS ORDERED: Dextrose 5% in Water Inj 100 ML IV.SIG ONE (12:00)
[2018-05-18] MEDS ORDERED: Sod Chloride 0.9% Inj 1,000 ML IV.SIG ONE (12:00)
[2018-05-18] MEDS ORDERED: Protamine Sulfate Inj 250 MG/25 ML Vial IV.CONT ONE (12:00)
[2018-05-18] MEDS ORDERED: Sodium Chlor 0.9% Inj 100 ML IV.SIG ONE (12:00)
[2018-05-18] MEDS ORDERED: Sodium Chlor 0.9% Inj 250 ML IV.SIG ONE (12:00)
[2018-05-18] MEDS ORDERED: Propofol Inj 500 MG/50 ML Vial IV.SIG ONE (12:00)
[2018-05-18] MEDS ORDERED: Phenylephrine/NS 1000 MCG/10ML Syringe IV.PUSH ONE (12:00)
[2018-05-18] MEDS ORDERED: Glycopyrrolate 0.2 MG/ML Vial IV.PUSH ONE (12:00)
[2018-05-18] MEDS ORDERED: Heparin - SQ 10,000 UNITS/ML Vial IRRIGATION ONE (12:00)
[2018-05-18] MEDS ORDERED: Dexmedetomidine Inj 200 MCG/2 ML Vial IV.CONT ONE (12:00)
[2018-05-18] MEDS ORDERED: Potassium Chlor 20 mEq Premix 20 MEQ/100 ML PIGGYBACK IV.SIG ONE (14:27)
[2018-05-18] MEDS ORDERED: Metoprolol Inj 5 MG/5 ML Vial IV.PUSH PRN (14:37)
[2018-05-18] MEDS ORDERED: Magnesium Sulfate Inj 2 GM in Sodium Chlor 0.9% Inj 96 ML IV.SIG PRN ×5 (14:37→15:15)
[2018-05-18] MEDS ORDERED: Post-op Orders (for Pharmacy) OTHER STA (14:37)
[2018-05-18] MEDS ORDERED: RESP: Racemic Epinephrine 2.25% 0.5 ML Neb NEB PRN (14:37)
[2018-05-18] MEDS ORDERED: Potassium Chlor 20 mEq Premix 20 MEQ/100 ML PIGGYBACK IV.SIG PRN ×3 (14:37)
[2018-05-18] MEDS ORDERED: Dextrose 50% in Water 50 ML Vial IV.PUSH PRN (14:37)
[2018-05-18] MEDS ORDERED: Calcium Chloride Inj 1 GM/10 ML Syringe IV.PUSH PRN (14:37)
[2018-05-18] MEDS ORDERED: Albumin Human 5% Inj 250 ML IV.SIG PRN (14:37)
--- NOTE | 2018-05-18 14:48 | P.OP ---
- Preoperative Diagnosis (1) CAD (coronary artery disease) (2) Unstable angina (3) Non-ST elevation myocardial infarction (NSTEMI) - Postoperative Diagnosis (1) Unstable angina (2) Non-ST elevation myocardial infarction (NSTEMI) (3) CAD (coronary artery disease) Date of procedure: 05/18/18 Procedure: CABG x 3 PEREZ to LAD - good SVG to OM - good SVG to PDA- small EVH Anesthesia: GETA Surgeon: Palma Ibrahim MD Staff Submarine Warfare Officer: Cassidy Villegas Pathology: none sent Operation and Findings: The patient was seen in the Holding Room. The risks, benefits, complications, treatment options, and expected outcomes were discussed with the patient. The possibilities of reaction to medication, pulmonary aspiration, perforation of viscus, bleeding, recurrent infection, the need for additional procedures, failure to diagnose a condition, and creating a complication requiring transfusion or operation were discussed with the patient. The patient concurred with the proposed plan, giving informed consent. The site of surgery properly noted/marked. The patient was taken to Operating Room, identified as Gilmer Wilsontz and the procedure verified as CABG, EVH. A Time Out was held and the above information confirmed. Standard monitoring lines and Bowers catheter were placed. General anesthesia was induced. The patient was prepped and draped in a sterile fashion. A median sternotomy was performed and electrocautery was used to obtain hemostasis. The left internal mammary artery was procured as a pedicle from the 7th rib to the 1st rib in the usual manner. Simultaneously left greater saphenous vein was procured from the left leg using a minimally invasive endoscopic technique. The vein was prepared for anastomosis and the leg wound was irrigated and closed in 2 layers. The pericardium was opened and a pericardial sling was created using interrupted 0 silk sutures. The patient was heparinized for cardiopulmonary bypass and the distal mammary pedicle was instrumented for anastomosis. The heart was instrumented for cardiopulmonary bypass in the usual manner. Antegrade blood cardioplegia was employed. The patient was placed on cardiopulmonary bypass. An aortic cross-clamp was applied and the heart was arrested using cold blood cardioplegia. Antegrade cardioplegia was administered after he each anastomosis. After adequate arrest, the distal right coronary circulation was investigated and the PDA was opened with a [place] blade and found to be a 1 millimeter good target. Saphenous vein was approximated to the PDA artery using a running 7 0 Prolene suture. The graft was measured for length and orientation and the proximal anastomosis was constructed to the ascending aorta using a running 5 0 Prolene suture after creating an aortotomy with a 5 millimeter punch. The 1st circumflex marginal artery was then opened with a [place] blade and found to be a 1.5 millimeter good target. Saphenous vein was approximated to the OM1 artery using a running 7 0 Prolene suture. The graft was measured for length and orientation and was suspended from the pericardium. The distal LAD was opened with a [place] blade and found to be a 1.5 millimeter good target. The left internal mammary artery was approximated to the LAD using a running 7 0 Prolene suture. The pedicle was attached to the epicardium using interrupted 5 0 silk suture. The patient was systemically rewarmed and received a hotshot dose of warm blood cardioplegia. The aorta was vented and the proximal anastomosis to the OM1 graft was accomplished using a running 5 0 Prolene suture after creating an aortotomy was a 5 millimeter punch. The cross-clamp was removed and all proximal and distal anastomoses were examined for hemostasis. The patient was weaned from cardiopulmonary bypass. Protamine was given. There was no adverse reaction. Decannulation was carried out without incident. Wound was checked for hemostasis which was obtained using electrocautery. A 36 Uzbek mediastinal and 32 Uzbek left pleural chest tubes were placed and secured to the skin with 0 silk suture. The sternum was closed with stainless steel wire. The fascia was closed with 1. PDS. The subcutaneous tissue was closed using a running 2-0 Vicryl suture. The skin was closed with 4- 0 Monocryl. Sterile dressings were placed. At the end of the operation, all sponge, instruments, and needle counts were correct. The patient was transferred to the CICU in stable condition. XC: 55 min CPB: 63 min Drains: mediastinal x 1 pleural x 1 Complications: none Disposition: to CVICU in stable condition
[2018-05-18] MEDS ORDERED: fentaNYL Citrate Inj 250 MCG/5 ML Ampul ONE (15:32)
[2018-05-18] MEDS: Calcium Chloride Inj 1 GM in Sodium Chlor 0.9% Inj 100 ML IV.SIG PRN ×2 (15:36→20:41)
--- NOTE | 2018-05-18 15:44 | P.DCO ---
- Home Health Nursing Order: Medical education, Signs/symptoms of disease process, Wound care and dressing changes, Nursing assessment with vital signs Instructions: PREVENA Single Use Negative Wound Therapy System Caregiver Instruction Sheet 1. A Prevena dressing system was applied to the chest incision during surgery , to promote wound healing. It works via a suction device (negative pressure wound therapy) to remove low to moderate levels of exudate (drainage) and infectious materials. We recommend that the device stay in place for up to seven days, from day of surgery. 2. Day of Surgery /07/26____ Day of Removal ____/ 3. The dressing should only be removed by a health laboratory animal caretaker. Please arrange removal of device to coincide with Home Health visit and or with Nursing staff at Rehab 4. If skin reddening or irritation of skin occurs, or excessive drainage, please notify the Cardiovascular Surgeons office at [phone]. 5. Light showering is permissible; however the pump should be disconnected and placed in safe location, where it will not get wet. The dressing should not be exposed to direct spray or submerged in water. No bath tub / shower only. Ensure the end of the tubing attached to the dressing is facing down so that water does not enter the top of the tube. 6. To remove Prevena dressing: press purple button to turn off device / remove the suction. Then disconnect the tubing from the pump. The fixation strips should be stretched away from the skin and the dressing lifted at one corner and peeled back until it has been fully removed. 7. After removal, it is ok to shower daily using liquid dial soap and clean wash cloth, rinse and pat dry, and leave incision open to air dry. For any concerns regarding Prevena dressing, and or wounds, please contact Marilu Grant, patient navigator at [phone] or notify the Cardiovascular Surgeons office at [phone]. Heart and Vascular Surgery patients *Special attention to sternal dressing Mandatory frequency Assess and evaluation, 4 days in a row The next week 3X week 2 times a week for 4 weeks 1 time a week for 5 weeks Schedule Heart and Vascular patients for full 60 day certification period Initial visit Review Open Heart Surgery Discharge Instructions (Sternal precautions, Activity, Elastic hose, Incision care, Driving, Incentive spirometry, Smoking, [place], Work and other) Need Betadine to paint incision Medication reconciliation Importance of follow up care/ check on appointments Make calendar record temperature daily When to call [facility] at Home nurse, review instructions, phone list Incentive Spirometry, demonstration Visit 1- Begin discharge instruction for patient family and/ or caregiver using teach back method- Signs and symptoms of infection Disease characteristics Medicines and side effects Foods and nutrition/ appetite Infection control/ hand washing/ hygiene Visit 2- Continue teaching Discharge instructions- include additional information on smoking cessation , sternal dressing (sternal vac) Visit 3- Continue teaching- Cough and deep breathing, incision monitoring. Choose my plate Visit 4- Continue teaching- Discuss limitations Discuss how they are feeling Discuss progress toward goals Remaining visits- continue teaching and monitoring For any questions please call : Monday 8am-5pm Heart & Vascular Surgery Office ( Dr. Walters & Dr. Ibrahim), After Hours / Nights (5pm -8am) Weekends and Holidays Please call [facility] Cardiac Intermediate Care Unit (CIC) Charge Nurse Incentive spirometry Q1 hr x 10, while awake, also use acapella device hourly whole awake Sternal Breast Bone Precautions: NO pushing or pulling, ( pt must use sternal pillow to support chest with all activities and with coughing ( takes up to 3 months breast bone to heal ) Daily incision care: ok to shower daily, no tub bath. Wash all incisions with liquid dial soap, clean wash cloth to each site, rinse and pat dry. Observe for any signs of infection, such as drainage which is dark yellow, correa, green or foul smelling. Immediately report to the surgeon any drainage from the chest incision, or legs, and for any abnormal drainage from the chest tube sites. Notify surgeon if any temp >101.5 degrees F. When specialty dressing removed/ or if you do not have one, continue to shower daily as above, then rinse and pat incision dry and paint with betadine daily x 5 days. Allow steri strips to fall off if you have any. Avoid lotions, creams, salves, oils, etc. for the first month Please see attached forms for additional instructions regarding post Open Heart specialty wound vacuum dressings. MADELYN or Prevena , Dressing to be removed by Nursing staff on _05/25/18 F/U appointment: as per DC instructions: PCP in 2 weeks, CV surgeon 2 weeks, Java Project Manager 3-4 weeks For any questions regarding incisions/ dressing / meds / post op care or above Symptoms, Monday 8am-5pm Heart & Vascular Surgery Office ( Dr. Walters & Dr. Ibrahim), After Hours / Nights (5pm -8am) Weekends and Holidays Please call [facility] Cardiac Intermediate Care Unit (CIC) Charge Nurse - Certification I have seen patient Gilmer Hinson on 05/18/18. My clinical findings support the need for the requested home health care services because: Deconditioned with increased weakness I certify that my clinical findings support that this patient is homebound because: Post-op weakness
[2018-05-18] MEDS ORDERED: Dexmedetomidine Inj 200 MCG in Sodium Chlor 0.9% Inj 48 ML IV.CONT PRN (16:00)
[2018-05-18] MEDS ORDERED: Insulin Regular (For Infusion) 100 UNIT in Sodium Chlor 0.9% Inj 99 ML IV.CONT PRN (16:00)
[2018-05-18] MEDS ORDERED: Clevidipine Inj 25 MG/50 ML VIAL IV.CONT PRN (16:00)
--- NOTE | 2018-05-18 16:22 | XR ---
EXAM DATE: 05/18/2018 4:13 PM EDT AGE/SEX: 63 years / Male INDICATIONS: Shortness of breath. CLINICAL DATA: This is the patient's initial encounter. Patient reports that signs and symptoms have been present for 1 day and indicates a pain score of Nonresponsive. MEDICAL/SURGICAL HISTORY: . Cardiovascular disease. Hypercholesterolemia. Hypertension. . Um bilical hernia repair. Coronary artery stent. COMPARISON: [facility] – [place], CHEST 1V SINGLE AP, 05/15/2018. . FINDINGS: A single AP view of the chest demonstrates interval thoracic surgery with intact median sternotomy wi res. Mediastinal drain, left-sided thoracostomy tube, endotracheal tube, right IJ central venous cath eter and nasogastric tube all appear to be appropriately positioned. There is no pneumothorax. Heart size is normal. Osseous structures are intact CONCLUSION: 1. Interval thoracic surgery with intact median sternotomy wires. 2. Multiple life-support tubes as integrated above all appear to be appropriately positioned. 3. No pneumothorax. Lungs are clear. Electronically signed by: Yousuf Quezada MD 05/18/2018 4:20 PM EDT
[2018-05-18] MEDS: Pantoprazole Inj 40 MG Vial IV.PUSH SCH (18:52)
[2018-05-18] MEDS: fentaNYL Citrate Inj 100 MCG/2 ML Ampul IV.PUSH PRN ×2 (19:56→23:24)
[2018-05-19] MEDS: fentaNYL Citrate Inj 100 MCG/2 ML Ampul IV.PUSH PRN (01:11)
[2018-05-19 04:37] LABS: Baso % (Auto) 0.1 % (0.0-2.0); Hematocrit 37.3 % (39.0-51.0); Hemoglobin 12.7 gm/dL (13.0-17.0); Lymph % (Auto) 5.3 % (9.0-44.0); Mean Corpuscular HGB Conc 33.9 % (32.0-36.0); Mean Corpuscular Hemoglobin 28.7 pg (27.0-34.0); Mean Corpuscular Volume 84.6 fL (80.0-100.0); Mean Platelet Volume 8.5 fL (7.0-11.0); Mono # (Auto) 1.5 th/mm3 (0.0-0.9); Mono % (Auto) 7.9 % (0.0-8.0); Neut # (Auto) 16.4 th/mm3 (1.8-7.7); Neut % (Auto) 86.7 % (16.0-70.0); Platelet Count 131 th/mm3 (150-450); Red Blood Count 4.41 mil/mm3 (4.50-5.90); Red Cell Distribution Width 13.4 % (11.6-17.2); White Blood Count 18.9 th/mm3 (4.0-11.0)
[2018-05-19] MEDS: Amiodarone 200 MG Tablet PO SCH ×4 (04:41→22:06)
[2018-05-19 04:55] LABS: Albumin 2.8 g/dL (3.4-5.0); Anion Gap 7 meq/L (5-15); Aspartate Aminotransferase 29 U/L (15-37); Blood Urea Nitrogen 20 mg/dL (7-18); Calcium 7.9 mg/dL (8.5-10.1); Carbon Dioxide 26.4 meq/L (21.0-32.0); Chloride 108 meq/L (98-107); Glomerular Filtration Rate Greater Than 89 mL/min (>89); Glucose,Random 119 mg/dL (74-106); Potassium 4.5 meq/L (3.5-5.1); Sodium 141 meq/L (136-145)
[2018-05-19 04:58] LABS: Alanine Aminotransferase 26 U/L (12-78); Alkaline Phosphatase 54 U/L (45-117); Total Protein 5.1 g/dL (6.4-8.2)
--- NOTE | 2018-05-19 05:53 | XR ---
EXAM DATE: 05/19/2018 5:38 AM EDT AGE/SEX: 63 years / Male INDICATIONS: Shortness of breath, possible pulmonary disease. CLINICAL DATA: This is the patient's subsequent encounter. Patient reports that signs and symptoms h ave been present for 2 days and indicates a pain score of 8/10. MEDICAL/SURGICAL HISTORY: . Cardiovascular disease. Hypercholesterolemia. Hypertension. CABG. Umbilical hernia repair. Coronary artery stent. COMPARISON: [facility] – [place], CHEST 1V SINGLE AP, 05/18/2018. . FINDINGS: Portable AP view of the chest demonstrates a normal-sized cardiac silhouette post median sternotomy. EKG lines overlie the patient. Right IJ line remains present. ETT and nasogastric tube have been darryl karishma. Large bore left chest tube remains present and no pneumothorax is visualized. There is atelectas is at the lung bases. No pleural effusion is present. CONCLUSION: 1. Mild bibasilar opacity most likely representing atelectasis. 2. Left chest tube remains present and no pneumothorax is visualized. Electronically signed by: Jeovanny Gomez MD 05/19/2018 5:52 AM EDT
[2018-05-19] MEDS: Ketorolac Inj 30 MG/ML (IVP) Vial IV.PUSH PRN ×2 (06:27→14:33)
[2018-05-19] MEDS: Pantoprazole Inj 40 MG Vial IV.PUSH SCH (08:30)
[2018-05-19] MEDS: Mupirocin 2% Nasal Oint Topical Syringe EACH NARE SCH ×2 (08:32→14:31)
--- NOTE | 2018-05-19 09:34 | ECG ---
Date Performed: 05/19/2018 Time Performed: 05:36:56 PTAGE: 63 years EKG: Sinus rhythm with multifocal PVCs Abnormal ECG PREVIOUS TRACING : 05/14/2018 17.55 DOCTOR: Drew Horton Interpretating Date/Time 05/19/2018 09:33:35
--- NOTE | 2018-05-19 12:07 | P.PNCV ---
- Note CVT: Post Op Day #: 1 Subjective/Hospital Course: 05/16 pt denies any chest pain last night Carotid US OK leg vein mapping : no targets lower legs, ok for upper harvesting for surgery on thursday 05/17 no chest pain , for surgery in am 05/19/18 No complaints, doing well Objective: Vital Signs - 24 hr 05/18/18 15:15 05/18/18 15:30 05/18/18 16:00 Temperature 98.6 F Pulse Rate 69 81 Respiratory Rate 10 L 11 L Blood Pressure 100/51 L 111/61 Pulse Oximetry 98 94 L 05/18/18 17:06 05/18/18 17:38 05/18/18 20:00 Temperature 97.6 F Pulse Rate 72 76 Respiratory Rate 12 16 Blood Pressure 97/64 L Pulse Oximetry 99 97 05/18/18 20:31 05/18/18 20:58 05/18/18 22:20 Temperature Pulse Rate 70 63 Respiratory Rate 16 20 Blood Pressure Pulse Oximetry 05/19/18 00:00 05/19/18 00:58 05/19/18 04:00 Temperature 97.4 F L 97.5 F L Pulse Rate 79 76 Respiratory Rate 16 16 20 Blood Pressure 122/61 143/77 H Pulse Oximetry 05/19/18 04:51 05/19/18 08:00 05/19/18 10:03 Temperature 97.9 F Pulse Rate 76 87 Respiratory Rate 18 16 Blood Pressure 112/64 Pulse Oximetry 94 L 95 Labs: Laboratory Results - last 12 hr 05/17/18 05/19/18 05/19/18 03:50 00:25 01:05 WBC RBC Hgb Hct MCV MCH MCHC RDW Plt Count MPV Neut % (Auto) Lymph % (Auto) [place] % (Auto) Eos % (Auto) Baso % (Auto) Neut # (Auto) Lymph # (Auto) [place] # (Auto) Eos # (Auto) Baso # (Auto) WBC Differential Differential Comment Sodium Potassium Chloride Carbon Dioxide Anion Gap BUN Creatinine Estimated GFR POC Glucose 138 H 132 H Random Glucose Calcium Magnesium Total Bilirubin AST ALT Alkaline Phosphatase Total Protein Albumin Blood Type A Positive Blood Type Recheck Required Antibody Screen Negative MTS Gel Crossmatch See Detail 05/19/18 05/19/18 05/19/18 04:00 04:00 05:09 WBC 18.9 H D RBC 4.41 L Hgb 12.7 L D Hct 37.3 L MCV 84.6 MCH 28.7 MCHC 33.9 RDW 13.4 Plt Count 131 L MPV 8.5 Neut % (Auto) 86.7 H Lymph % (Auto) 5.3 L [place] % (Auto) 7.9 Eos % (Auto) 0.0 Baso % (Auto) 0.1 Neut # (Auto) 16.4 H Lymph # (Auto) 1.0 [place] # (Auto) 1.5 H Eos # (Auto) 0.0 Baso # (Auto) 0.0 WBC Differential . Differential Comment Auto diff final Sodium 141 Potassium 4.5 Chloride 108 H Carbon Dioxide 26.4 Anion Gap 7 BUN 20 H Creatinine 0.77 Estimated GFR Greater than 89 POC Glucose 121 H Random Glucose 119 H Calcium 7.9 L D Magnesium 2.0 Total Bilirubin 0.6 AST 29 ALT 26 Alkaline Phosphatase 54 Total Protein 5.1 L D Albumin 2.8 L D Blood Type Blood Type Recheck Antibody Screen MTS Gel Crossmatch 05/19/18 05/19/18 05/19/18 06:06 07:51 10:07 WBC RBC Hgb Hct MCV MCH MCHC RDW Plt Count MPV Neut % (Auto) Lymph % (Auto) [place] % (Auto) Eos % (Auto) Baso % (Auto) Neut # (Auto) Lymph # (Auto) [place] # (Auto) Eos # (Auto) Baso # (Auto) WBC Differential Differential Comment Sodium Potassium Chloride Carbon Dioxide Anion Gap BUN Creatinine Estimated GFR POC Glucose 101 110 121 H Random Glucose Calcium Magnesium Total Bilirubin AST ALT Alkaline Phosphatase Total Protein Albumin Blood Type Blood Type Recheck Antibody Screen MTS Gel Crossmatch 05/19/18 11:28 WBC RBC Hgb Hct MCV MCH MCHC RDW Plt Count MPV Neut % (Auto) Lymph % (Auto) [place] % (Auto) Eos % (Auto) Baso % (Auto) Neut # (Auto) Lymph # (Auto) [place] # (Auto) Eos # (Auto) Baso # (Auto) WBC Differential Differential Comment Sodium Potassium Chloride Carbon Dioxide Anion Gap BUN Creatinine Estimated GFR POC Glucose 119 H Random Glucose Calcium Magnesium Total Bilirubin AST ALT Alkaline Phosphatase Total Protein Albumin Blood Type Blood Type Recheck Antibody Screen MTS Gel Crossmatch Result Diagrams: 05/19/18 04:00 05/19/18 04:00 Imaging: Carotid Doppler Study 05/15/18 14:37 CONCLUSION: 1. Right Internal Carotid Artery: Mild atherosclerotic plaque at the bifurcation without hemodynamically significant narrowing. 2. Left Internal Carotid Artery: Mild atherosclerotic plaque at the bifurcation without hemodynamically significant narrowing. Lower Extremity Ultrasound 05/15/18 14:37 CONCLUSION: Bilateral saphenous vein measurements as above. Distal vessels are diminutive, left worse than right. Venous Doppler Study 05/15/18 14:37 CONCLUSION: No venous thrombosis of either lower extremity. Chest X-Ray 05/19/18 05:00 CONCLUSION: 1. Mild bibasilar opacity most likely representing atelectasis. 2. Left chest tube remains present and no pneumothorax is visualized. Cardiovascular: RRR Telemetry: NSR Pulmonary: CTA GI/: NABS Incision: dry and intact CT: ~420 ml since OR - Plan (1) Unstable angina Plan: on ASA, statin , BB for surgery on monday off plavix and ARB (3) Hyperlipidemia (4) CAD (coronary artery disease) Transfer to [facility] Encourage ambulation Advance diet Continue chest tubes Beta az added Remove brown (3) Hyperlipidemia Qualifiers: Hyperlipidemia type: unspecified Qualified Code(s): E78.5 - Hyperlipidemia, unspecified (4) CAD (coronary artery disease) Qualifiers: Coronary Disease-Associated Artery/Lesion type: [place] artery [place] vs. transplanted heart: [place] heart Associated angina: with unstable angina Qualified Code(s): I25.110 - Atherosclerotic heart disease of [place] coronary artery with unstable angina pectoris
[2018-05-19] MEDS ORDERED: Bisacodyl 10 MG Supp RECTAL PRN (12:08)
[2018-05-19] MEDS ORDERED: Dextrose 50% in Water 50 ML Vial IV.PUSH PRN ×2 (12:08→15:14)
[2018-05-19] MEDS: Metoprolol Tartrate 25 MG Tablet PO SCH ×2 (14:37→22:12)
[2018-05-19] MEDS: Insulin NovoLOG Aspart Correctional Sugar Inj SQ SCH (16:20)
[2018-05-19] MEDS: Docusate Sodium 100 MG Capsule PO SCH (22:06)
[2018-05-20] MEDS: Insulin NovoLOG Aspart Correctional Sugar Inj SQ SCH ×5 (00:14→21:33)
[2018-05-20] MEDS: Ketorolac Inj 30 MG/ML (IVP) Vial IV.PUSH PRN (00:14)
[2018-05-20] MEDS: Temazepam 15 MG Capsule PO PRN ×2 (00:16→22:14)
[2018-05-20 06:24] LABS: Baso % (Auto) 0.1 % (0.0-2.0); Eos # (Auto) 0.1 th/mm3 (0.0-0.4); Eos % (Auto) 0.3 % (0.0-4.0); Hematocrit 31.7 % (39.0-51.0); Hemoglobin 10.5 gm/dL (13.0-17.0); Lymph # (Auto) 1.4 th/mm3 (1.0-4.8); Lymph % (Auto) 8.2 % (9.0-44.0); Mean Corpuscular HGB Conc 33.2 % (32.0-36.0); Mean Corpuscular Hemoglobin 28.7 pg (27.0-34.0); Mean Corpuscular Volume 86.4 fL (80.0-100.0); Mean Platelet Volume 8.7 fL (7.0-11.0); Mono # (Auto) 1.4 th/mm3 (0.0-0.9); Mono % (Auto) 8.2 % (0.0-8.0); Neut # (Auto) 14.1 th/mm3 (1.8-7.7); Neut % (Auto) 83.2 % (16.0-70.0); Platelet Count 115 th/mm3 (150-450); Red Blood Count 3.66 mil/mm3 (4.50-5.90); Red Cell Distribution Width 13.5 % (11.6-17.2); White Blood Count 16.9 th/mm3 (4.0-11.0)
[2018-05-20 06:36] LABS: Carbon Dioxide 26.7 meq/L (21.0-32.0); Potassium 4.4 meq/L (3.5-5.1)
[2018-05-20] MEDS: Pantoprazole Inj 40 MG Vial IV.PUSH SCH (10:05)
[2018-05-20] MEDS: Multivitamin/Minerals Therapeutic Tablet PO SCH (10:06)
[2018-05-20] MEDS: Docusate Sodium 100 MG Capsule PO SCH ×2 (10:06→20:33)
[2018-05-20] MEDS: Metoprolol Tartrate 25 MG Tablet PO SCH ×4 (10:07→21:33)
--- NOTE | 2018-05-20 12:16 | P.PNCV ---
- Note CVT: Post Op Day #: 2 Subjective/Hospital Course: 05/16 pt denies any chest pain last night Carotid US OK leg vein mapping : no targets lower legs, ok for upper harvesting for surgery on thursday 05/17 no chest pain , for surgery in am 05/19/18 No complaints, doing well 05/20/18 No complaints. Doing well. Chest tube output ~150ml/12 hrs. Objective: Vital Signs - 24 hr 05/19/18 15:00 05/19/18 15:37 05/19/18 16:37 Temperature 98.3 F Pulse Rate 74 87 62 Respiratory Rate 18 Blood Pressure 124/83 Pulse Oximetry 94 L 05/19/18 17:20 05/19/18 19:00 05/19/18 20:00 Temperature 98.4 F Pulse Rate 66 72 72 Respiratory Rate 18 Blood Pressure 128/56 L Pulse Oximetry 95 05/19/18 21:00 05/19/18 22:00 05/19/18 23:00 Temperature 97.9 F Pulse Rate 78 76 66 Respiratory Rate 18 Blood Pressure 105/51 L Pulse Oximetry 91 L 05/20/18 00:00 05/20/18 00:13 05/20/18 01:00 Temperature Pulse Rate 64 64 Respiratory Rate 16 Blood Pressure Pulse Oximetry 05/20/18 02:00 05/20/18 03:00 05/20/18 03:29 Temperature 97.9 F Pulse Rate 58 L 66 67 Respiratory Rate 18 20 Blood Pressure 105/51 L Pulse Oximetry 91 L 05/20/18 04:00 05/20/18 05:00 05/20/18 06:00 Temperature Pulse Rate 62 68 62 Respiratory Rate Blood Pressure Pulse Oximetry 05/20/18 09:53 Temperature Pulse Rate 73 Respiratory Rate 20 Blood Pressure Pulse Oximetry Labs: Laboratory Results - last 12 hr 05/17/18 05/20/18 05/20/18 03:50 00:12 06:00 WBC 16.9 H RBC 3.66 L Hgb 10.5 L D Hct 31.7 L MCV 86.4 MCH 28.7 MCHC 33.2 RDW 13.5 Plt Count 115 L MPV 8.7 Neut % (Auto) 83.2 H Lymph % (Auto) 8.2 L [place] % (Auto) 8.2 H Eos % (Auto) 0.3 Baso % (Auto) 0.1 Neut # (Auto) 14.1 H Lymph # (Auto) 1.4 [place] # (Auto) 1.4 H Eos # (Auto) 0.1 Baso # (Auto) 0.0 WBC Differential . Differential Comment Auto diff final Sodium Potassium Chloride Carbon Dioxide Anion Gap BUN Creatinine Estimated GFR POC Glucose 130 H Random Glucose Calcium Magnesium MTS Gel Crossmatch See Detail 05/20/18 05/20/18 06:00 07:53 WBC RBC Hgb Hct MCV MCH MCHC RDW Plt Count MPV Neut % (Auto) Lymph % (Auto) [place] % (Auto) Eos % (Auto) Baso % (Auto) Neut # (Auto) Lymph # (Auto) [place] # (Auto) Eos # (Auto) Baso # (Auto) WBC Differential Differential Comment Sodium 138 Potassium 4.4 Chloride 104 Carbon Dioxide 26.7 Anion Gap 7 BUN 27 H Creatinine 1.09 Estimated GFR 69 L POC Glucose 102 Random Glucose 103 Calcium 8.0 L Magnesium 2.0 MTS Gel Crossmatch Result Diagrams: 05/20/18 06:00 05/20/18 06:00 Imaging: Carotid Doppler Study 05/15/18 14:37 CONCLUSION: 1. Right Internal Carotid Artery: Mild atherosclerotic plaque at the bifurcation without hemodynamically significant narrowing. 2. Left Internal Carotid Artery: Mild atherosclerotic plaque at the bifurcation without hemodynamically significant narrowing. Lower Extremity Ultrasound 05/15/18 14:37 CONCLUSION: Bilateral saphenous vein measurements as above. Distal vessels are diminutive, left worse than right. Venous Doppler Study 05/15/18 14:37 CONCLUSION: No venous thrombosis of either lower extremity. Chest X-Ray 05/19/18 05:00 CONCLUSION: 1. Mild bibasilar opacity most likely representing atelectasis. 2. Left chest tube remains present and no pneumothorax is visualized. Cardiovascular: RRR Telemetry: NSR Pulmonary: CTA GI/: NABS Incision: dry and intact CT: 150ml/12hrs - Plan (1) Unstable angina Plan: on ASA, statin , BB for surgery on monday off plavix and ARB (3) Hyperlipidemia (4) CAD (coronary artery disease) Continue chest tube to water seal one more day Encourage ambulation Stim BM Anticipate discharge tomorrow or Monday. (3) Hyperlipidemia Qualifiers: Hyperlipidemia type: unspecified Qualified Code(s): E78.5 - Hyperlipidemia, unspecified (4) CAD (coronary artery disease) Qualifiers: Coronary Disease-Associated Artery/Lesion type: [place] artery [place] vs. transplanted heart: [place] heart Associated angina: with unstable angina Qualified Code(s): I25.110 - Atherosclerotic heart disease of [place] coronary artery with unstable angina pectoris
[2018-05-20] MEDS: Amiodarone 200 MG Tablet PO SCH ×3 (15:32→21:33)
[2018-05-20] MEDS: Polyethylene Glycol 3350 17 GM Packet PO SCH (20:09)
[2018-05-21] MEDS: Amiodarone 200 MG Tablet PO SCH ×2 (05:51→20:51)
[2018-05-21] MEDS: Polyethylene Glycol 3350 17 GM Packet PO SCH (09:00)
[2018-05-21] MEDS: Multivitamin/Minerals Therapeutic Tablet PO SCH (09:01)
[2018-05-21] MEDS: Docusate Sodium 100 MG Capsule PO SCH ×2 (09:01→21:51)
[2018-05-21] MEDS: Insulin NovoLOG Aspart Correctional Sugar Inj SQ SCH ×3 (09:03→17:26)
[2018-05-21] MEDS: Metoprolol Tartrate 25 MG Tablet PO SCH ×2 (09:03→20:51)
[2018-05-21] MEDS ORDERED: Amiodarone Inj 150 MG in Dextrose 5% in Water Inj 97 ML IV.SIG ONE ×2 (10:28)
--- NOTE | 2018-05-21 10:28 | P.PNCV ---
- Note Subjective/Hospital Course: A 63-year-old male who was transferred from the [facility] after presenting with symptomatic chest pain while mowing the lawn. Described it similar to presentation to his prior angina. Apparently he had some chest pain and received a stent in [address] Nav Catherine, was found to have non-STEMI with elevated troponins of 0.19. EKG showed sinus bradycardia, no acute change. Risk factors include coronary artery disease, age, hypertension, and hyperlipidemia. He states he last saw Dr. Catherine in August of 2017. Apparently , Dr. Horton did try to contact [facility] but they did not have any records on him. He was transferred here and had a heart catheterization by Dr. Horton which showed LAD had a 75% eccentric stenosis with a tandem 30-40% stenosis in the proximal to mid-segment at the bifurcation of the diagonal branch. The circumflex is about 95% subtotally occluded. The right coronary artery had an 80% proximal stenosis. We were consulted for severe 3-vessel coronary artery disease. PAST MEDICAL HISTORY: Includes coronary artery disease, hypertension, hyperlipidemia. 05/16 pt denies any chest pain last night Carotid US OK leg vein mapping : no targets lower legs, ok for upper harvesting for surgery on thursday 05/17 no chest pain , for surgery in am surgery: 05/18 CABG x 3 PEREZ to LAD - good SVG to OM - good SVG to PDA- small EVH 05/19/18 No complaints, doing well 05/20/18 No complaints. Doing well. Chest tube output ~150ml/12 hrs. 05/21 doing well ,chest tube dc without difficulty on ASA, BB , Plavix statin no BM, additional GI motility meds given Objective: Vital Signs - 24 hr 05/20/18 11:00 05/20/18 12:00 05/20/18 13:00 Temperature 98.2 F Pulse Rate 76 66 68 Respiratory Rate 20 Blood Pressure 104/57 L Pulse Oximetry 94 L 05/20/18 14:00 05/20/18 15:00 05/20/18 16:00 Temperature 98.2 F Pulse Rate 70 60 70 Respiratory Rate 20 Blood Pressure 89/53 L Pulse Oximetry 95 05/20/18 17:00 05/20/18 17:14 05/20/18 18:00 Temperature Pulse Rate 64 70 70 Respiratory Rate 20 Blood Pressure Pulse Oximetry 05/20/18 19:00 05/20/18 20:00 05/20/18 21:00 Temperature 98.4 F Pulse Rate 75 65 69 Respiratory Rate Blood Pressure 91/70 L Pulse Oximetry 94 L 05/20/18 21:18 05/20/18 21:43 05/20/18 22:00 Temperature Pulse Rate 65 70 Respiratory Rate 18 Blood Pressure Pulse Oximetry 95 05/20/18 23:00 05/21/18 00:00 05/21/18 01:00 Temperature 98.2 F Pulse Rate 65 76 76 Respiratory Rate Blood Pressure 113/58 L Pulse Oximetry 95 05/21/18 02:00 05/21/18 03:00 05/21/18 04:00 Temperature 98.1 F Pulse Rate 71 65 65 Respiratory Rate Blood Pressure 92/51 L Pulse Oximetry 93 L 05/21/18 04:12 05/21/18 05:42 05/21/18 07:00 Temperature 98.1 F Pulse Rate 63 70 74 Respiratory Rate 18 17 Blood Pressure 100/55 L Pulse Oximetry 93 L 05/21/18 08:00 05/21/18 09:00 05/21/18 09:42 Temperature Pulse Rate 73 66 67 Respiratory Rate 16 Blood Pressure Pulse Oximetry 92 L GENERAL: A&O x 3 SKIN: Warm and dry. Prevena dressing to chest / incision intact left leg HEAD: Normocephalic. EYES: No scleral icterus. No injection or drainage. NECK: Supple, trachea midline. No JVD or lymphadenopathy. CARDIOVASCULAR: Regular rate and rhythm without murmurs, gallops, or rubs. RESPIRATORY: Breath sounds equal bilaterally. No accessory muscle use. GASTROINTESTINAL: Abdomen soft, non-tender, nondistended. MUSCULOSKELETAL: No cyanosis, or edema. BACK: Nontender without obvious deformity. No CVA tenderness. Labs: Laboratory Results - last 12 hr 05/21/18 08:13 POC Glucose 129 H Result Diagrams: 05/20/18 06:00 05/20/18 06:00 - Plan (1) Unstable angina Plan: on ASA, statin , BB for surgery on monday off plavix and ARB (3) Hyperlipidemia (4) CAD (coronary artery disease) (5) S/P CABG x 3 Plan: ASA, statin , BB , plavix pulm toileting nebs ezpap (3) Hyperlipidemia Qualifiers: Hyperlipidemia type: unspecified Qualified Code(s): E78.5 - Hyperlipidemia, unspecified (4) CAD (coronary artery disease) Qualifiers: Coronary Disease-Associated Artery/Lesion type: [place] artery [place] vs. transplanted heart: [place] heart Associated angina: with unstable angina Qualified Code(s): I25.110 - Atherosclerotic heart disease of [place] coronary artery with unstable angina pectoris
[2018-05-21] MEDS ORDERED: Amiodarone 200 MG Tablet PO SCH (21:00)
--- NOTE | 2018-05-22 06:09 | XR ---
EXAM DATE: 05/22/2018 5:43 AM EDT AGE/SEX: 63 years / Male INDICATIONS: Short of breath. CLINICAL DATA: This is the patient's subsequent encounter. Patient reports that signs and symptoms h ave been present for 1 week and indicates a pain score of 0/10. MEDICAL/SURGICAL HISTORY: Cardiovascular disease. Hypercholesterolemia. Hypertension. CABG. Umbilical hernia repair. Coronary artery stent. [place] [facility] [place]. . FINDINGS: A single AP view of the chest demonstrates minimal bibasilar densities. Status post CABG. Left-sided chest tube removed small apical pneumothorax. The cardiomediastinal contours are unremarkable. Osse ous structures are intact. Right jugular central line and sternal chest tube removed. CONCLUSION: Small apical pneumothorax. Minimal bibasilar atelectasis. Electronically signed by: Bertin Dick MD 05/22/2018 6:07 AM EDT
[2018-05-22] MEDS: Insulin NovoLOG Aspart Correctional Sugar Inj SQ SCH ×2 (06:46→07:59)
[2018-05-22 08:09] VITALS: BP 125/59; TEMP 97.7; O2SAT 95
[2018-05-22] MEDS: Amiodarone 200 MG Tablet PO SCH (08:46)
[2018-05-22] MEDS: Metoprolol Tartrate 25 MG Tablet PO SCH (08:46)
[2018-05-22] MEDS: Polyethylene Glycol 3350 17 GM Packet PO SCH (08:46)
[2018-05-22] MEDS: Multivitamin/Minerals Therapeutic Tablet PO SCH (08:46)
[2018-05-22 09:14] VITALS: PULSE 90; RESP 18
--- NOTE | 2018-05-22 10:00 | P.DS ---
Date of admission: 05/14/18 17:10 Primary care physician: No Primary Care Physician Attending physician on discharge: Palma Ibrahim Anticipated date of discharge: 05/22/18 Brief History from admission: 63-year-old male with known history of hypertension, hyperlipidemia, coronary disease who presented to the hospital for evaluation chest pain. Patient is followed by Dr. Catherine on a regular basis. Patient states that he saw him last in August 2017. Since then he has been doing quite well until probably about a week ago when he started developing pain on exertion. Patient states that he was mowing the lawn in the heat and started developing a centralized chest pain which radiated to his left arm. Denied any diaphoresis, shortness of breath, dyspnea, nausea, vomiting, lightheadedness or dizziness. Patient states that since then he has been having intermittent chest discomfort mainly with exertion , and it does go away after about 10-15 minutes when she sits down and rest. He has had 2 episodes of which he was experiencing the discomfort while at rest. Today he was doing some light exertion playing the drums and he got the chest pain again which was 8/10 on a pain scale. He came to emergency department for evaluation. Initial workup was unremarkable and has requested that the patient be observed in the hospital for further evaluation and management. Follow-up troponins have turned positive. Patient with non-ST elevated myocardial infarction. Patient will be admitted. Cardiac consultation. DS: Diagnosis - Discharge Diagnosis (1) Unstable angina Status: Acute (2) Non-ST elevation myocardial infarction (NSTEMI) Status: Acute (3) Hyperlipidemia Status: Chronic (4) CAD (coronary artery disease) Status: Acute (5) S/P CABG x 3 Status: Acute DS: Medications - Discharge Medications Prescriptions: amiodarone 200 mg PO Q12HR #28 tab clopidogrel [Plavix] 75 mg PO DAILY #30 tab docusate sodium [DOK] 100 mg PO BID #60 cap hydrocodone-acetaminophen [[place]] 1 tab PO Q4H PRN #40 tab PRN Reason: Acute Pain metoprolol tartrate 12.5 mg PO BID #60 tab oajxpbla-bjqb-WA-calcium-mins [Thera M Plus (ferrous fumarat)] 1 tab PO DAILY # 30 tab DS: Summary Hospital Course: PAST MEDICAL HISTORY: Includes coronary artery disease, hypertension, hyperlipidemia. 05/16 pt denies any chest pain last night Carotid US OK leg vein mapping : no targets lower legs, ok for upper harvesting for surgery on thursday 05/17 no chest pain , for surgery in am surgery: 05/18 CABG x 3 PEREZ to LAD - good SVG to OM - good SVG to PDA- small EVH 05/19/18 No complaints, doing well 05/20/18 No complaints. Doing well. Chest tube output ~150ml/12 hrs. 05/21 doing well ,chest tube dc without difficulty on ASA, BB , Plavix statin no BM, additional GI motility meds given 05/22 pt stable for dc home with HHC + BM on room air - Time Spent with Patient Total time spent providing and/or coordinating discharge services: Greater than 30 minutes - Quality: VTE Deep Vein Thrombosis/Pulmonary Embolism Present on Admission: No Exam Vital signs: Vital Signs 05/21/18 10:00 05/21/18 10:47 05/21/18 11:00 Temperature 97.8 F Pulse Rate 67 68 Respiratory Rate 16 15 Blood Pressure 100/52 L Pulse Oximetry 94 L 05/21/18 12:00 05/21/18 13:00 05/21/18 14:00 Temperature Pulse Rate 70 63 56 L Respiratory Rate Blood Pressure Pulse Oximetry 05/21/18 15:00 05/21/18 15:23 05/21/18 16:00 Temperature 97.1 F L Pulse Rate 58 L 56 L 64 Respiratory Rate 16 15 Blood Pressure 94/51 L Pulse Oximetry 95 05/21/18 17:00 05/21/18 18:00 05/21/18 19:00 Temperature Pulse Rate 66 67 64 Respiratory Rate Blood Pressure Pulse Oximetry 05/21/18 20:00 05/21/18 20:22 05/21/18 21:00 Temperature 98.0 F Pulse Rate 76 67 78 Respiratory Rate 16 15 Blood Pressure 113/55 L Pulse Oximetry 94 L 05/21/18 21:20 05/21/18 22:00 05/21/18 23:00 Temperature 98.1 F Pulse Rate 68 74 Respiratory Rate 16 16 Blood Pressure 126/68 Pulse Oximetry 95 05/22/18 00:00 05/22/18 01:00 05/22/18 02:00 Temperature Pulse Rate 64 82 60 Respiratory Rate Blood Pressure Pulse Oximetry 05/22/18 03:00 05/22/18 03:25 05/22/18 04:00 Temperature 97.2 F L Pulse Rate 59 L 64 68 Respiratory Rate 16 20 Blood Pressure 115/61 Pulse Oximetry 94 L 05/22/18 05:00 05/22/18 06:00 05/22/18 07:00 Temperature 97.7 F Pulse Rate 64 63 69 Respiratory Rate 20 Blood Pressure 125/59 L Pulse Oximetry 95 05/22/18 08:00 05/22/18 09:00 05/22/18 09:13 Temperature Pulse Rate 85 67 90 Respiratory Rate 18 Blood Pressure Pulse Oximetry Intake & Output 05/21/18 05/22/18 05/22/18 18:59 06:59 18:59 Intake Total 840 / 840 680 / 680 Balance 840 / 840 680 / 680 Weight 69.3 kg Intake: Oral 840 / 840 680 / 680 Other: # Voids 5 Date of Last Bowel Movement 05/21/18 05/22/18 # Bowel Movements 2 - Constitutional no acute distress - Routine HEENT Exam Head: Present: normocephalic, atraumatic - Routine Neck Exam Present: supple, full ROM - Routine Chest/Breast/Axilla Exam Chest wall: Present: tenderness - Routine Respiratory Exam Present: CTA bilaterally - Routine Cardiovascular Exam Present: RRR, S1, S2 - Routine Abdominal Exam Present: soft, normoactive bowel sounds - Routine Extremities Exam Present: full ROM, pulses intact, normal capillary refill - Routine Skin Exam Present: wounds Comments: prevena dressing to chest - Routine Neurological Exam Present: alert, oriented X3, CN II-XII intact Results Procedures completed during hospitalization: Date of procedure: 05/18/18 Procedure: CABG x 3 PEREZ to LAD - good SVG to OM - good SVG to PDA- small EVH Labs on day of discharge: Labs from last 24 hours 05/22/18 05/21/18 05/21/18 07:28 21:58 16:58 POC Glucose 120 H 125 H 127 H 05/21/18 11:05 POC Glucose 118 H - Impressions ITS Impressions Carotid Doppler Study 05/15/18 14:37 CONCLUSION: 1. Right Internal Carotid Artery: Mild atherosclerotic plaque at the bifurcation without hemodynamically significant narrowing. 2. Left Internal Carotid Artery: Mild atherosclerotic plaque at the bifurcation without hemodynamically significant narrowing. Lower Extremity Ultrasound 05/15/18 14:37 CONCLUSION: Bilateral saphenous vein measurements as above. Distal vessels are diminutive, left worse than right. Venous Doppler Study 05/15/18 14:37 CONCLUSION: No venous thrombosis of either lower extremity. Chest X-Ray 05/22/18 06:00 CONCLUSION: Small apical pneumothorax. Minimal bibasilar atelectasis. Discharge Plan - Discharge Disposition Patient Disposition: W/Home Health Service - Discharge Condition Condition: Stable - Discharge Order Discharge Orders: Discharge Order (Routine); Ordered 05/21/18 Ordered By: Ana Lilia Thao - Discharge Details Anticipated Discharge Date: 05/22/18 Discharge Comment: ok to dc - Physicians Team Primary Care Provider: Primary Care Physici,No Attending Provider: Palma Ibrahim Other Providers: Drew Horton MD ; Palma Ibrahim MD ; [facility]
[2018-05-22] MEDS: Docusate Sodium 100 MG Capsule PO SCH (10:46)
== END 2018-05-22 11:57 | disposition home health service (06) ==
LOC: PHED 13:16 → PHEDA 13:16 → PH3 16:36 → N04 05-15 01:18 → HCIS 05-15 12:51 → HCPC 05-15 13:11 → HCVI 05-18 15:24 → HCPC 05-19 15:03
PROVIDERS: ADMIT Thoracic Surgery (Cardiothoracic Vascular Surgery); ATTEND Thoracic Surgery (Cardiothoracic Vascular Surgery)